=== PATIENT | male | born 1975 | race Caucasian/White ===

== ENCOUNTER 2023-07-25 19:55 | Emergency (ER) | payer OTHER, SELFPAY ==
[2023-07-25] VITALS (30 sets, daily range): BP systolic 128–196; BP diastolic 68–107; PULSE 62–95; RESP 8–23; TEMP 36.6–36.8; O2SAT 89–98
--- NOTE | 2023-07-25 19:59 | XR_ITS ---
The [address] [address] Patient Name: HERNESTO SAAVEDRA MRN: [id number] date: 1975 Sex: M Assigned Patient Location: ER Current Patient Location: ED.MAIN Accession/Order Number: [id number] Exam Date: 07/25/2023 20:20 Report Date: 07/25/2023 21:25 At the request of: TRISTAN MATA Procedure: XR shoulder RT min 2V EXAM: XR shoulder RT min 2V HISTORY: Right shoulder injury COMPARISON: Right shoulder radiographs 07/25/2023 TECHNIQUE: 2 view right shoulder FINDINGS: There is an anterior subluxation of the right glenohumeral joint. No definite fracture. Mild degenerative changes of the acromioclavicular joint. Imaged right lung is clear. XR/XR shoulder RT min 2V IMPRESSION: Anterior subluxation of the right glenohumeral joint. Electronically authenticated by: NATHANAEL ELIAS Date: 07/25/2023 21:25
--- NOTE | 2023-07-25 20:03 | ED_ITS ---
HPI - Extremity Injury (Upper) General Chief Complaint: Extremity Injury, Upper Stated Complaint: Shoulder Injury Time Seen by Provider: 07/25/23 19:57 History of Present Illness HPI narrative: patient is a 47-year-old male who presents to the emergency department for right shoulder injury that occurred just prior to arrival. 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 He denies head injury, loss of consciousness, pain in the neck or back. He states he dislocated his right shoulder a year ago. He is concerned he may dislocated his shoulder tonight. no medications taken prior to arrival. Related Data Previous Rx's Medication Instructions Recorded hydrocodone 5 mg-acetaminophen 325 1 tab PO Q6H PRN pain #12 tabs 07/25/23 mg tablet methocarbamol 750 mg tablet 750 mg PO TID PRN pain #20 tabs 07/25/23 ondansetron 4 mg disintegrating 4 mg PO Q6H PRN nausea and 07/25/23 tablet vomiting #12 tabs Allergies Allergy/AdvReac Type Severity Reaction Status Date / Time aspirin Allergy Unknown Rash Verified 07/25/23 20:01 Penicillins Allergy Unknown Rash Verified 07/25/23 20:01 Review of Systems ROS Constitutional Denies: fever or chills Ears, nose, mouth, and throat Denies: throat pain or neck pain Respiratory Denies: cough Gastrointestinal Denies: nausea or vomiting Musculoskeletal Denies: back pain, neck pain or extremity pain Integumentary/Breast Denies: rash Neurological Denies: headache or numbness in extremities Endocrine Denies: excessive urination [facility] Social History Smoking status: Never smoker Exam Narrative Exam Narrative: Gen.: Awake, alert, in no distress Head: Normocephalic, atraumatic ENT: Moist mucous membranes, no bony tenderness of the C-spine or posterior right shoulder Respiratory: No respiratory distress Extremities: limited abduction at the right shoulder with palpable rotation of the right upper extremity, no palpable deformity of the humeral head. No bony tenderness of the right elbow, normal appointment specialist strength in the right hand. 2+ right radial pulse Psych: Normal mood and affect Neuro: No focal neuro deficit Skin: Warm, dry, intact Constitutional Vital Signs, click to edit/add: Last Vital Signs Temp 97.9 F 07/25/23 20:38 Pulse 88 07/25/23 22:46 Resp 16 07/25/23 22:46 BP 128/68 07/25/23 22:46 Pulse Ox 98 07/25/23 22:46 O2 Del Method Room Air 07/25/23 22:46 Course Vital Signs Vital signs: Vital Signs Temperature 98.3 F 07/25/23 20:01 Pulse Rate 86 07/25/23 20:01 Respiratory Rate 18 07/25/23 20:01 Blood Pressure 196/107 H 07/25/23 20:01 Pulse Oximetry 98 07/25/23 20:01 Oxygen Delivery Method Room Air 07/25/23 20:01 Temperature 97.9 F 07/25/23 20:38 Pulse Rate 88 07/25/23 22:46 Respiratory Rate 16 07/25/23 22:46 Blood Pressure 128/68 07/25/23 22:46 Pulse Oximetry 98 07/25/23 22:46 Oxygen Delivery Method Room Air 07/25/23 22:46 MDM - Extremity Injury (Upper) MDM Narrative Medical decision making narrative: patient was initially medicated with intramuscular Toradol and Norflex. X-rays were obtained showing an anterior dislocation of the right shoulder. IV was established, patient was placed on cardiac monitoring with respiratory therapy at bedside. Consent was obtained from the patient for conscious sedation to reduce his right shoulder. Preprocedure paperwork was filled out by myself and attending physician. Attending physician is at the bedside throughout the duration of the conscious sedation and reduction. Patient was treated with 2 mg of IV Versed as well as 4 mg of IV Zofran and 15 mg of IV etomidate. Patient had excellent sedation and maintained his airway without supplemental oxygen or hypoxia. Right arm was easily manipulated with rotation with palpable and audible reduction of the right shoulder. Patient was placed in a right shoulder sling, post reduction x- rays were obtained showing adequate reduction of the right shoulder. Patient remains neurovascularly intact. 2+ right radial pulse is palpated after reduction. patient was observed for one hour following right shoulder reduction. He maintains his own airway, he maintains normal cardiac monitoring. He is easily arousable after right shoulder reduction. He is encouraged to stay in the right shoulder sling for 5-7 days, follow closely with orthopedics and apply ice to the area. He is placed on a course of analgesics and muscle relaxants. Return to the Emergency Room if symptoms change or worsen. Critical care time thirty-five minutes Medical Records Attestation: I reviewed the patient's medical records. Imaging Data XR shoulder: Attestation: I have reviewed the pertinent imaging results. Radiologist's impression: Procedure: XR shoulder RT min 2V EXAM: XR shoulder RT min 2V HISTORY: Right shoulder injury COMPARISON: Right shoulder radiographs 07/25/2023 TECHNIQUE: 2 view right shoulder FINDINGS: There is an anterior subluxation of the right glenohumeral joint. No definite fracture. Mild degenerative changes of the acromioclavicular joint. Imaged right lung is clear. IMPRESSION: Anterior subluxation of the right glenohumeral joint. Electronically authenticated by: NATHANAEL ELIAS Date: 07/25/2023 21:25 Critical Care Time Critical Care Time Total Critical Care Time: 35 Discharge Plan Discharge Chief Complaint: Extremity Injury, Upper Clinical Impression: Anterior dislocation of right shoulder Patient Disposition: Home, Self-Care Time of Disposition Decision: 20:54 Condition: Good Prescriptions / Home Meds: New hydrocodone-acetaminophen 5-325 mg tablet 1 tab PO Q6H PRN (Reason: pain) Qty: 12 0RF Rx Instructions: DX: M25.511 methocarbamol 750 mg tablet 750 mg PO TID PRN (Reason: pain) Qty: 20 0RF ondansetron 4 mg tablet,disintegrating 4 mg PO Q6H PRN (Reason: nausea and vomiting) Qty: 12 0RF Instructions: Shoulder Dislocation (ED), Closed Reduction (ED), Shoulder Immobilizer (ED) Additional Instructions: Wear sling for 5 days, call ortho office for follow up Stand Alone Forms: Portal Instructions Referrals: Physician,Non-Staff, MD [Primary Care Provider] - 1 week Vern Carias MD [Physician] - 1 week Discharge Date/Time: 07/25/23 22:48
--- NOTE | 2023-07-25 20:08 | PC.NURSE ---
Pain to right shoulder, no redness, bruising or warmth at site. Skin to right arm pink and warm, pulses present, able to move fingers and arm
[2023-07-25] MEDS: KETOROLAC TROMETHAMINE 30 MG/ML VIAL IM (20:13)
[2023-07-25] MEDS: ORPHENADRINE 60 MG/ 2 ML VIAL IM (20:13)
--- NOTE | 2023-07-25 20:40 | XR_ITS ---
The [address] [address] Patient Name: HENRESTO SAAVEDRA MRN: [id number] date: 1975 Sex: M Assigned Patient Location: ED.MAIN Current Patient Location: ER Accession/Order Number: [id number] Exam Date: 07/25/2023 21:20 Report Date: 07/25/2023 21:57 At the request of: TRISTAN MATA Procedure: XR shoulder RT min 2V EXAM: XR shoulder RT min 2V HISTORY: post reduction COMPARISON: Right shoulder radiographs 07/25/2023 TECHNIQUE: 2 views right shoulder FINDINGS: Interval reduction of the right glenohumeral joint which appears anatomic. No definite fracture although positioning limits evaluation. The remainder is otherwise unchanged from recent prior. XR/XR shoulder RT min 2V IMPRESSION: Interval successful reduction of the right glenohumeral joint. Limited evaluation of the right shoulder for fracture. Electronically authenticated by: NATHANAEL ELIAS Date: 07/25/2023 21:57
[2023-07-25] MEDS: ONDANSETRON PF 4 MG/2 ML VIAL IV (21:09)
[2023-07-25] MEDS: MIDAZOLAM HCL 2 MG/2 ML VIAL IV ×2 (21:12→21:16)
[2023-07-25] MEDS: ETOMIDATE 20 MG/10 ML VIAL 15 MG IVP (21:16)
--- NOTE | 2023-07-25 21:29 | PC.NURSE ---
Awake and alert, answers all questions appropriately. Skin pink and warm. Able to move all extremities. Skin to right arm and hand pink and warm and able to move arm, hand, and fingers, pulses present. Sling in place to right arm, ice applied.
--- NOTE | 2023-07-25 21:39 | PC.NURSE ---
Remains alert, takes ice chips without difficulty.
--- NOTE | 2023-07-25 21:56 | PC.NURSE ---
Patient friend/pedigree tracer here at this time and is updated per OK from patient.
== END 2023-07-25 22:48 | disposition home or self-care (01) ==
PROVIDERS: Emergency Provider Internal Medicine
DX: S43.011A Anterior subluxation of right humerus, initial encounter (principal); W18.2XXA Fall in (into) shower or empty bathtub, initial encounter
CPT/HCPCS: 23650; 73030; 96372; 96374; 96375; 99152; 99285

== ENCOUNTER 2023-07-28 16:22 | Emergency (ER) | payer OTHER, SELFPAY ==
[2023-07-28] VITALS (12 sets, daily range): BP systolic 156–186; BP diastolic 96–114; PULSE 80–106; RESP 16–29; TEMP 36.6–36.8; O2SAT 96–100
--- NOTE | 2023-07-28 16:31 | XR_ITS ---
[address] [address] Patient Name: HERNESTO SAAVEDRA MRN: [id number] date: 1975 Sex: M Assigned Patient Location: ER Current Patient Location: Accession/Order Number: [id number] Exam Date: 07/28/2023 17:00 Report Date: 07/28/2023 17:21 At the request of: JHONATAN GLASS Procedure: XR shoulder RT 1V EXAM: XR shoulder RT 1V HISTORY: dislocation COMPARISON: X-rays 07/25/2023 TECHNIQUE: Single view FINDINGS: IMPRESSION Again demonstrated is an anterior inferior dislocation of the humeral head from the glenoid. No gross visualized fracture. Degenerative changes of the acromioclavicular joint Electronically authenticated by: CARLOS BEACH Date: 07/28/2023 17:21
--- NOTE | 2023-07-28 16:32 | ED_ITS ---
HPI - Extremity Injury (Upper) General Chief Complaint: Extremity Injury, Upper Stated Complaint: upper extremity injury right Time Seen by Provider: 07/28/23 16:25 Source: patient Mode of arrival: walk-in Limitations: no limitations History of Present Illness HPI narrative: 47-year-old male presents with a possible right shoulder dislocation. He was here 3 days ago with the same issue and was put into place, but he was not wearing his sling today and he states that he only moved his arm slightly and pop out of place. He did not call Ortho yesterday or today to make a follow-up appointment. Denies swelling, temp or sensation changes Related Data Previous Rx's Medication Instructions Recorded hydrocodone 5 mg-acetaminophen 325 1 tab PO Q6H PRN pain #12 tabs 07/25/23 mg tablet methocarbamol 750 mg tablet 750 mg PO TID PRN pain #20 tabs 07/25/23 ondansetron 4 mg disintegrating 4 mg PO Q6H PRN nausea and 07/25/23 tablet vomiting #12 tabs Allergies Allergy/AdvReac Type Severity Reaction Status Date / Time aspirin Allergy Unknown Rash Verified 07/28/23 16:25 Penicillins Allergy Unknown Rash Verified 07/28/23 16:25 Review of Systems ROS Status of ROS 10 or more systems reviewed and unremarkable except as noted in history and below PFSH PFS Social History Smoking status: Never smoker Exam Narrative Exam Narrative: General: alert, no distress, talking in full an complete sentences skin: warm, dry, intact head: normocephalic, atraumatic eyes: EOMI nose: nares patent neck: supple, trachea midline respiratory: non-labored extremities: No range of motion of right shoulder due to pain, manager rfid strength +5/5, capillary refill intact, pulses intact neuro: A&Ox3 psych: appropriate mood and affect, cooperative Constitutional Vital Signs, click to edit/add: Last Vital Signs Temp 98 F 07/28/23 17:10 Pulse 80 07/28/23 17:32 Resp 16 07/28/23 17:32 BP 162/96 H 07/28/23 17:32 Pulse Ox 98 07/28/23 17:32 O2 Del Method Room Air 07/28/23 16:26 O2 Flow Rate 2 07/28/23 17:32 Course Vital Signs Vital signs: Vital Signs Temperature 98.3 F 07/28/23 16:26 Pulse Rate 101 H 07/28/23 16:26 Respiratory Rate 18 07/28/23 16:26 Blood Pressure 173/102 H 07/28/23 16:26 Pulse Oximetry 96 07/28/23 16:26 Oxygen Delivery Method Room Air 07/28/23 16:26 Temperature 98 F 07/28/23 17:10 Pulse Rate 80 07/28/23 17:32 Respiratory Rate 16 07/28/23 17:32 Blood Pressure 162/96 H 07/28/23 17:32 Pulse Oximetry 98 07/28/23 17:32 Oxygen Delivery Method Room Air 07/28/23 16:26 Oxygen Delivery Flow Rate 2 07/28/23 17:32 MDM - Extremity Injury (Upper) MDM Narrative Medical decision making narrative: Patient medicated with Toradol and Norflex. Previous ER visit reviewed. Prelim x-ray shows a dislocation. Patient given conscious sedation with 20 mg IV etomidate. Patient was placed on global chief experience officer and pulse ox along with oxygen with respiratory therapy and Dr. Brizuela at bedside. Shoulder was successfully reduced with manual traction. No complications and tolerated well. He is placed in a sling and swath. Neurovascular intact. He is instructed to leave this on to prevent another dislocation and follow-up with Ortho. He was prescribed [place], Robaxin and Zofran 3 days ago. Patient is main appointment for next Thursday at [address] carias. Patient is awake and alert and oriented x3 having normal conversation prior to discharge. Afebrile, not tachypneic, not tachycardic, tolerating p.o., not hypoxic, non toxic appearing and ambulating at baseline and hemodynamically stable to be d/c. answered all questions. pt in agreement with tx. educated when to return to ER. Medical Records Attestation: I reviewed the patient's medical records. Imaging Data shoulder xray: Attestation: I have reviewed the pertinent imaging results. Radiologist's impression: IMPRESSION Again demonstrated is an anterior inferior dislocation of the humeral head from the glenoid. No gross visualized fracture. Degenerative changes of the acromioclavicular joint Discharge Plan Discharge Chief Complaint: Extremity Injury, Upper Clinical Impression: Anterior dislocation of right shoulder Qualifiers: Encounter type: initial encounter Qualified Code(s): S43.014A - Anterior dislocation of right humerus, initial encounter Patient Disposition: Home, Self-Care Time of Disposition Decision: 17:46 Condition: Good Mode of Transportation: Private Vehicle Prescriptions / Home Meds: No Action hydrocodone-acetaminophen 5-325 mg tablet 1 tab PO Q6H PRN (Reason: pain) Qty: 12 0RF Rx Instructions: DX: M25.511 methocarbamol 750 mg tablet 750 mg PO TID PRN (Reason: pain) Qty: 20 0RF ondansetron 4 mg tablet,disintegrating 4 mg PO Q6H PRN (Reason: nausea and vomiting) Qty: 12 0RF Instructions: Shoulder Dislocation (ED), How to Use a Sling (ED) Additional Instructions: Keep the sling on to prevent another dislocation Stand Alone Forms: Portal Instructions Referrals: Physician,Non-Staff, [Primary Care Provider] - 1 week Vern Carias MD [Physician] - 08/03/23 9:00 am Procedures ED Orthopedic Joint Reduction Orthopedic Joint Reduction Joint #1: Time out performed: Yes Side: right Joint reduction location: shoulder Analgesia: procedural sedation Shoulder technique used (if applicable): traction/counter-traction and external rotation Post-reduction neuro exam: intact Post-reduction vascular exam: intact Post-reduction x-ray obtained: Yes Post-reduction x-ray results: reduced Splint applied: Yes Patient tolerated procedure: well
[2023-07-28] MEDS: KETOROLAC TROMETHAMINE 30 MG/ML VIAL 15 MG IM (16:43)
[2023-07-28] MEDS: ORPHENADRINE 60 MG/ 2 ML VIAL IM (16:43)
--- NOTE | 2023-07-28 17:32 | XR_ITS ---
[address] [address] Patient Name: HERNESTO SAAVEDRA MRN: [id number] date: 1975 Sex: M Assigned Patient Location: ER Current Patient Location: ER Accession/Order Number: [id number] Exam Date: 07/28/2023 17:30 Report Date: 07/28/2023 17:54 At the request of: JHONATAN GLASS Procedure: XR shoulder RT 1V EXAM: XR shoulder RT 1V HISTORY: post reduction COMPARISON: Earlier in the day TECHNIQUE: Single view FINDINGS: IMPRESSION: Reduction of the previously visualized humeral head dislocation. Degenerative changes of the glenohumeral and acromioclavicular joints. Electronically authenticated by: CARLOS BEACH Date: 07/28/2023 17:54
[2023-07-28] MEDS: ETOMIDATE 20 MG/10 ML VIAL 15 MG IVP (17:41)
[2023-07-28] MEDS: ETOMIDATE 20 MG/10 ML VIAL 5 MG IVP (17:42)
== END 2023-07-28 18:13 | disposition home or self-care (01) ==
PROVIDERS: Emergency Provider Emergency Medicine
DX: S43.014A Anterior dislocation of right humerus, initial encounter (principal); X50.9XXA Other and unspecified overexertion or strenuous movements or postures, initial encounter
CPT/HCPCS: 23650; 73020; 96372; 96374; 99152; 99285

== ENCOUNTER 2023-09-08 13:01 | Outpatient (OUT) | payer OTHER, SELFPAY ==
--- NOTE | 2023-09-08 13:05 | MR_ITS ---
[address] [address] Patient Name: HERNESTO SAAVEDRA MRN: [id number] date: 1975 Sex: M Assigned Patient Location: MRI Current Patient Location: MRI Accession/Order Number: [id number] Exam Date: 09/08/2023 13:50 Report Date: 09/08/2023 21:48 At the request of: CHENTE PAZ Procedure: MR shoulder RT wo con EXAM: MR shoulder RT wo con HISTORY: Shoulder pain following dislocation COMPARISON: X-rays 07/25/2023 and 07/28/2023 TECHNIQUE: Multiplanar, multi sequential MRI sequences were performed. FINDINGS: This study is degraded secondary to full internal rotation positioning of the humeral head, patient motion and imaging angles performed. Subacute impacted fracture of the posterior superior aspect of the humeral head with underlying bone marrow edema. Evaluation of the anterior inferior glenoid fraying fracture is limited on this study. No discrete glenohumeral joint effusion. Moderate degenerative changes of the acromioclavicular joint consistent with capsular hypertrophy, small effusion, osteophytes and irregularity of the distal clavicle and adjacent acromion articular surfaces and subchondral bone. This complex mildly indents the dorsal fibers of the supraspinatus myotendinous junction (sagittal 5). The coracoclavicular, coracohumeral and coracoacromial ligaments exhibit no gross thickening, tear or edema. The subacromial-subdeltoid bursal space is unremarkable. The superficial subcutaneous soft tissues are free of edema, hematoma, mass or cyst. Posttraumatic thickening and edema of the infraspinatus tendon with no visualized tear. The supraspinatus, subscapularis and teres minor tendons exhibit no gross visualized irregularity. No discrete muscle edema, hematoma, atrophy or fatty infiltration. No avulsion of the biceps tendon long head from the supraglenoid tubercle or bicipital groove. The biceps tendon long head exhibits no gross visualized thickening, tear or edema, however, limited on this study. No gross avulsion of the biceps labral anchor. Evaluation of the anterior inferior labrum is limited secondary to positioning and angulation of the study. Questionable fraying of the posterior superior labrum, however, this may be artifactual (coronal 14). The humeral head and glenoid articular cartilage exhibit no gross osteochondral irregularity. MR/MR shoulder RT wo con IMPRESSION: 1. Limited evaluation of the anterior inferior osseous glenoid and the adjacent labrum. 2. Questionable fraying of the posterior superior labrum . 3. Postoperative infraspinatus tendinopathy. 4. Subacute Hill-Sachs fracture of the humeral head. Electronically authenticated by: CARLOS BEACH Date: 09/08/2023 21:48
== END 2023-09-08 13:02 | disposition home or self-care (01) ==
PROVIDERS: Visit Provider Orthopaedic Surgery
DX: S42.294A Other nondisplaced fracture of upper end of right humerus, initial encounter for closed fracture (principal); S43.004S Unspecified dislocation of right shoulder joint, sequela
CPT/HCPCS: 73221

== ENCOUNTER 2023-11-12 18:50 | Emergency (ER) | payer OTHER, SELFPAY ==
[2023-11-12] VITALS (34 sets, daily range): BP systolic 133–213; BP diastolic 89–137; PULSE 64–96; RESP 14–26; TEMP 36.7; O2SAT 93–99; BMI 27.9
--- OUTSIDE RECORDS SUMMARY | 2023-11-12 18:57 | XMS_ITS | CCD ---
Author Name Unknown Address [address] [place] [address] Organization [facility] Care Team Providers Care Senior Wind Energy Consultant Name Role Phone MISC, DR GERBER Attending Unavailable MISC, DR GERBER Consulting Unavailable MISC, DR GERBER Admitting Unavailable Allergies Allergy Classification Reported Allergen(s) Allergy Type Date of Onset Reaction(s) Facility (1 source) Aspirin Drug Allergy 01-25-2015 [facility] Repository (1 source) Penicillins Drug allergy (disorder) 01-25-2015 [facility] Repository Problems Active Problems Problem Classification Problem Date Documented Da te Episodic/Chronic Unclassified (3 sources) CONTACT W/AND (SUSP) EXPOS COVID-19; Translations: [CONTACT W/AND (SUSP) EXPOS COVID-19] Onset: 07-22-2021 Past or Other Problems Problem Classification Problem Date Documented Da te Episodic/Chronic Unclassified (1 source) CONTACT W/AND (SUSP) EXPOS COVID-19; Translations: [CONTACT W/AND (SUSP) EXPOS COVID-19] Onset: 07-17-2021 Results Test Name Value Interpretation Reference Range Facil ity Covid-19 PCR (CVDTBH)on 06-29 SARS-CoV-2 (COVID-19) RNA RONDA+probe Ql (Unsp spec) Not detected Normal NOT DETECTED [facility] Comment on above: Result Comment: This test is not yet candelaria roved or cleared by the [place] FDA. When there are no FDA-approved or cleared tests available, and other criteria are met, FDA can make tests available under an emergency access mechanism called an Emergency Use Authorization (EUA). The EUA for this test is supported by the Wheat Cleaner of Health and Human Service's (HHS's) declaration that circumstances exist to justify the emergency use of in vitro diagnostics for the detection and/or diagnosis of the virus that causes COVID-19. This EUA will remain in effect (meaning this test can be used) for the duration of the COVID-19 declaration justifying emergency of IVDs, unless it is terminated or revoked by FDA (after which the test may no longer be used). When diagnostic testing is negative, the possibility of a false negative should be considered in the context of a patient's recent exposures and the presence of clinical signs and symptoms consistent with SARS-CoV-2. Performed By: #### C VDTB #### [facility] [address] [place], [place] [address] Dr. Wally Hernandez Encounters Encounter Date Encounter Type Care Provider Facility Start: 07-17-2021 End: 07-17-[address] GERBER [facility] Facility: Payers Date Payer Category Payer Unknown [id number] 1960 Unknown [id number] Summary Purpose Family History No Family History Records Found Advance Directives No Advanced Directives Records Found Additional Source Comments (unrecognized sect ion and content) No Status Records Found INFORMATION SOURCE (unrecogn ized section and content) DATE CREATED AUTHOR 07/23/2021 [facility] FOR RECORDS PERTAINING TO PATIENTS WHO ARE OR HAVE BEEN ENROLLED IN A CHEMICAL DEPENDENCY/SUBSTANCEABUSE PROGRAM, SOME INFORMATION MAY BE OMITTED. This clinical summary was aggregated from multiple sources. Caution should be exercised in using it in the provision of clinical care. This summary normalizes information from multiple sources, and as a consequence, information in this document may materially change the coding, format and clinical context of patient data. In addition, data may be omitted in some cases. CLINICAL DECISIONS SHOULD BE BASED ON THE PRIMARY CLINICAL RECORDS. [employer] provides no warranty or guarantee of the accuracy or completeness of information in this document.
--- NOTE | 2023-11-12 19:12 | XR_ITS ---
The [address] [address] Patient Name: HERNESTO SAAVEDRA MRN: [id number] date: 1975 Sex: M Assigned Patient Location: ER Current Patient Location: Accession/Order Number: [id number] Exam Date: 11/12/2023 19:35 Report Date: 11/12/2023 20:17 At the request of: MALINDA MARKER Procedure: XR elbow RT 2V EXAM: XR elbow RT 2V HISTORY: Pain and swelling. COMPARISON: None FINDINGS: A true lateral view was not obtained; therefore, assessment for a joint effusion is limited. There is no convincing evidence of an acute fracture, subluxation or bony destruction. XR/XR elbow RT 2V IMPRESSION: No definite acute osseous abnormality detected. Follow-up as clinically indicated. Electronically authenticated by: RAMON AKBAR Date: 11/12/2023 20:17
--- NOTE | 2023-11-12 19:12 | XR_ITS ---
The [address] [address] Patient Name: HERNESTO SAAVEDRA MRN: [id number] date: 1975 Sex: M Assigned Patient Location: ER Current Patient Location: Accession/Order Number: [id number] Exam Date: 11/12/2023 19:35 Report Date: 11/12/2023 20:06 At the request of: MALINDA MARKER Procedure: XR shoulder RT min 2V IMAGES REVIEWED: XR shoulder RT min 2V COMPARISON: 07/25/2023, 09/08/2023. CLINICAL INDICATION: dislocation FINDINGS/IMPRESSION: 1. Anterior glenohumeral dislocation. 2. Prior MRI shoulder from 09/08/2023 demonstrated a subacute Hill-Sachs fracture of the humeral head. Questionable trace Hill-Sachs impaction deformity on the first view. No evidence of acute fracture on today's x-ray. 3. Moderate degenerative change right AC joint. Electronically authenticated by: MALLIKA NOONAN Date: 11/12/2023 20:06
--- NOTE | 2023-11-12 19:14 | ED_ITS ---
HPI - Extremity Injury (Upper) General Chief Complaint: Extremity Injury, Upper Stated Complaint: upper extremity injury Time Seen by Provider: 11/12/23 19:02 Source: patient Mode of arrival: walk-in Limitations: no limitations History of Present Illness HPI narrative: 48-year-old male who is right-hand dominant and has had several shoulder dislocations in the past presents for evaluation of a shoulder dislocation. The patient states he was putting on a shirt to get ready to go out to dinner when he felt a popping sensation in his right shoulder. He feels that his right elbow may be also dislocated. He feels like there is a lump in his right elbow and he cannot move it. He has followed up with Dr. Carias in the past. He denies any trauma to the extremity. There is no numbness or tingling. MD complaint: injury to: Reports right Related Data Allergies Allergy/AdvReac Type Severity Reaction Status Date / Time aspirin Allergy Unknown Rash Verified 11/12/23 19:04 Penicillins Allergy Unknown Rash Verified 11/12/23 19:04 Review of Systems ROS Status of ROS 10 or more systems reviewed and unremark able except as noted in history and below [facility] Social History Smoking status: Never smoker Exam Narrative Exam Narrative: Nurses note and vital signs reviewed and patient is not hypoxic.Blood pressure is noted to be elevated at 170/110 General: Alert, nontoxic but uncomfortable appearing male, he is sitting upright on the stretcher with his arm dangling into his lap, refuses any range of motion of the right upper extremity Skin: Warm, dry, no pallor noted. There is no rash noted. Head: Normocephalic, atraumatic Eye: Normal conjunctiva, no drainage, EOMI. PERRL Ears, Nose, Mouth, and Throat: oral mucosa is moist. Cardiovascular: Regular Rate and Rhythm Respiratory: Patient is in no distress, no accessory muscle use, lungs are clear to auscultation, no wheezing, rales or rhonchi Back: non-tender, no CVA tenderness bilaterally to percussion. Musculoskeletal: Formerly as noted at the right anterior shoulder area with palpable humeral head distal to the joint, patient refuses range of motion, there is no notable deformity of the elbow area, he is able to move all of his fingers, pulses are brisk and equal bilaterally Neurological: A&O x4, normal speech Psychiatric: Cooperative Constitutional Vital Signs, click to edit/add: Last Vital Signs Temp 98.1 F 11/12/23 19:00 Pulse 71 11/12/23 20:50 Resp 18 11/12/23 20:36 BP 148/90 H 11/12/23 20:40 Pulse Ox 96 11/12/23 20:50 O2 Del Method Room Air 11/12/23 19:00 O2 Flow Rate 2 11/12/23 20:13 Course Vital Signs Vital signs: Vital Signs Temperature 98.1 F 11/12/23 19:00 Pulse Rate 82 11/12/23 19:00 Respiratory Rate 16 11/12/23 19:00 Blood Pressure 170/110 H 11/12/23 19:00 Pulse Oximetry 97 11/12/23 19:00 Oxygen Delivery Method Room Air 11/12/23 19:00 Temperature 98.1 F 11/12/23 19:00 Pulse Rate 71 11/12/23 20:50 Respiratory Rate 18 11/12/23 20:36 Blood Pressure 148/90 H 11/12/23 20:40 Pulse Oximetry 96 11/12/23 20:50 Oxygen Delivery Method Room Air 11/12/23 19:00 Oxygen Delivery Flow Rate 2 11/12/23 20:13 MDM - Extremity Injury (Upper) MDM Narrative Medical decision making narrative: This 48-year-old male with a 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 He has been seen in the past by Dr. Carias and had an MRI of the shoulder. X-ray showed an anterior shoulder dislocation area and he was neurovascularly intact. He was concerned that he had some problem with his elbow as well. Elbow x-ray was also ordered and was normal. The patient consented to conscious sedation and was sedated and the shoulder was reduced. Postreduction x-ray was performed and shows a successful reduction. The patient will be given 2 Percocet to take home and a prescription for Robaxin and Percocet to use over the course of the next several days. He was strongly encouraged to use his sling as he has had patients in the past after not wearing a sling. He will be referred back to Dr. Carias for reevaluation and more definitive care. Medical Records Medical records narrative: The [address] [address] XRay Report Signed Patient: HERNESTO SAAVEDRA MR#: [id number] : 1975 Acct:[id number] Age/Sex: 48 / M ADM Date: 11/12/23 Loc: ER Attending Dr: Ordering Physician: Gianna Noyola Date of Service: 11/12/23 Procedure(s): XR shoulder RT 1V Accession Number(s): [id number] cc: Gianna Marker; Physician,Non-Staff M.DJohnathan~ The [address] [address] Patient Name: HERNESTO SAAVEDRA MRN: [id number] date: 1975 Sex: M Assigned Patient Location: ER Current Patient Location: ER Accession/Order Number: [id number] Exam Date: 11/12/2023 20:40 Report Date: 11/12/2023 20:58 At the request of: GIANNA NOYOLA Procedure: XR shoulder RT 1V IMAGES REVIEWED: XR shoulder RT 1V COMPARISON: X-ray earlier same day, MRI right shoulder 09/08/2023. CLINICAL INDICATION: post reduction FINDINGS/IMPRESSION: 1. Status post interval successful reduction of previously seen right anterior glenohumeral dislocation. 2. No acute fractures seen. Suspect a small Hill-Sachs lesion. 3. Mild-moderate degenerative change right shoulder. Electronically authenticated by: MALLIKA NOONAN Date: 11/12/2023 20:58 Critical Care Time Critical Care Time Critical Care Time: Yes Total Critical Care Time: 35 Attestation: . Discharge Plan Discharge Chief Complaint: Extremity Injury, Upper Clinical Impression: Anterior dislocation of right shoulder Patient Disposition: Home, Self-Care Time of Disposition Decision: 21:12 Condition: Good Instructions: Shoulder Dislocation (ED), How to Use a Sling (ED), Shoulder Immobilizer (ED) Stand Alone Forms: Portal Instructions Referrals: Physician,Non-Staff, MD [Primary Care Provider] - 1 week Procedures ED Procedure Instructions Procedures Procedures: Procedure note: The right anterior shoulder reduction; the risks and benefits of the procedure were discussed with the patient who verbalized understanding and signed consent. An axis placed over the right shoulder. Timeout was called. The patient was medicated with IV Zofran, 100 ?g of fentanyl and 4 mg of IV Versed. This did not allow the degree of sedation that he required to reduce the shoulder and he was subsequently medicated with 20 mg of IV etomidate. The shoulder was reduced with traction and once reduction was appreciated a shoulder immobilizer/sling was placed over the right shoulder. Post reduction x-ray shows reduction of the shoulder joint.
--- NOTE | 2023-11-12 19:21 | PC.NURSE ---
Pt. presents to ER with suspected dislocation of right shoulder Pt. states that he was buttoning up his shirt tonight to go to dinner and heard and felt a popping in his right shoulder Pt. states this is the fourth time it has happened Pt. expresses that his whole right extremity is in pain and states he believes his right elbow is swollen. Pt. MSP's are intact Pt. denies any further needs at this time
--- NOTE | 2023-11-12 20:20 | RESP.RT ---
RT assisted with conscious sedation. 02 at 2L placed on patient.
--- NOTE | 2023-11-12 20:36 | XR_ITS ---
The [address] [address] Patient Name: HERNESTO SAAVEDRA MRN: [id number] date: 1975 Sex: M Assigned Patient Location: ER Current Patient Location: Accession/Order Number: [id number] Exam Date: 11/12/2023 20:40 Report Date: 11/12/2023 20:58 At the request of: MALINDA MARKER Procedure: XR shoulder RT 1V IMAGES REVIEWED: XR shoulder RT 1V COMPARISON: X-ray earlier same day, MRI right shoulder 09/08/2023. CLINICAL INDICATION: post reduction FINDINGS/IMPRESSION: 1. Status post interval successful reduction of previously seen right anterior glenohumeral dislocation. 2. No acute fractures seen. Suspect a small Hill-Sachs lesion. 3. Mild-moderate degenerative change right shoulder. Electronically authenticated by: MALLIKA NOONAN Date: 11/12/2023 20:58
[2023-11-12] MEDS: ONDANSETRON PF 4 MG/2 ML VIAL IV (20:52)
[2023-11-12] MEDS: DIPHENHYDRAMINE HCL 50 MG/ML (1ML) VIAL 25 MG IV (20:52)
[2023-11-12] MEDS: MIDAZOLAM HCL 2 MG/2 ML VIAL 4 MG IV (20:52)
[2023-11-12] MEDS: FENTANYL CITRATE/PF 100 MCG/2 ML VIAL IV (20:53)
--- NOTE | 2023-11-12 21:08 | PC.NURSE ---
2012-Pt vitals obtained This nurse, Jean Paul Sarmiento student, Zaynab Storm RN, Erin respiratory therapist and Dr. Noyola at bedside Zofran administered 2017- rash noted at IV site, 25mg IV Benadryl given pt still A&Ox4 at this time placed on 2L of O2 nc 2018- 50mcg of Fentanyl given IV 2020- time out called, right sided shoulder reduction to take place 4mg IV versed administered 2021- unsuccessful attempts at resetting the shoulder 2022- 50mcg of Fentanyl given IV Vitals obtained every 5 minutes throughout the procedure, BP remained elevated but all vitals stable and recorded At 2030- Loop Trolley joined to assist, 20mg IV etomidate administered 2032- successful reduction 2038- post reduction x ray obtained and approved by Dr. Noyola at bedside
[2023-11-12] MEDS: ETOMIDATE 20 MG/10 ML VIAL IVP (21:24)
[2023-11-12] MEDS: OXYCODONE HCL/ACETAMINOPHEN 5MG/325MG 1 TAB PO (22:57)
[2023-11-12] MEDS: OXYCODONE HCL/ACETAMINOPHEN 5MG/325MG 2 TAB PO (23:37)
--- NOTE | 2023-11-12 23:57 | PC.NURSE ---
Pt. received discharge instructions as well as home medications Pt. educated on when to take medications, and to follow up with ortho Pt. and friend at bedside understood discharge instructions and denied any questions Pt. able to ambulate to bathroom Pt. wheeled out of ER by this student development specialist to friends car
== END 2023-11-12 23:57 | disposition home or self-care (01) ==
PROVIDERS: Emergency Provider Emergency Medicine
DX: M24.411 Recurrent dislocation, right shoulder (principal)
CPT/HCPCS: 23650; 73020; 73030; 73070; 96374; 96375; 99152; 99284; J1200; J2250; J2405; J3010

== ENCOUNTER 2023-11-23 09:52 | Outpatient (RCR) | payer OTHER, SELFPAY | END 2024-01-28 13:00 | disposition home or self-care (01) | LOC: PT 09:52 | PROVIDERS: Visit Provider Orthopaedic Surgery | DX: S43.004D Unspecified dislocation of right shoulder joint, subsequent encounter (principal) ==

== ENCOUNTER 2024-01-29 07:59 | Outpatient (RCR) | payer OTHER, SELFPAY | END 2024-03-03 13:18 | disposition home or self-care (01) | LOC: PT 07:59 | PROVIDERS: Visit Provider Orthopaedic Surgery | DX: S43.004D Unspecified dislocation of right shoulder joint, subsequent encounter (principal) | CPT/HCPCS: 97110; 97112; 97140; 97162 ==

== ENCOUNTER 2024-03-02 13:36 | Emergency (ER) | payer OTHER, SELFPAY ==
[2024-03-02] VITALS (25 sets, daily range): BP systolic 130–192; BP diastolic 88–144; PULSE 67–96; TEMP 36.7–36.9; O2SAT 92–98; BMI 28.6
--- NOTE | 2024-03-02 13:39 | XR_ITS ---
The [address] [address] Patient Name: HERNESTO SAAVEDRA MRN: [id number] date: 1975 Sex: M Assigned Patient Location: ED.MAIN Current Patient Location: ER Accession/Order Number: [id number] Exam Date: 03/02/2024 13:48 Report Date: 03/02/2024 14:04 At the request of: TRISTAN MATA Procedure: XR shoulder RT min 2V PROCEDURE: XR shoulder RT min 2V HISTORY: dislocation COMPARISON: None. FINDINGS: BONES:Anterior-inferior dislocation of the humeral head in relation to glenoid. Questionable nondisplaced fracture involving inferior margin of glenoid. Mild degenerative changes of acromioclavicular joint. SOFT TISSUES:No visible soft tissue swelling. EFFUSION:None visible. OTHER: Negative. XR/XR shoulder RT min 2V IMPRESSION: 1. Anterior-inferior glenohumeral dislocation. 2. Possible fracture of the inferior margin of glenoid. Follow-up recommended. Electronically authenticated by: CHENTE TRAORE Date: 03/02/2024 14:04
--- NOTE | 2024-03-02 13:43 | ED.GENADUL1 ---
HPI HPI - General Adult General Chief complaint: Extremity Injury, Upper Stated complaint: UPPER EXTREMITY INJURY Time Seen by Provider: 03/02/24 13:37 History of Present Illness HPI narrative: Patient is a 48-year-old male with a history of recurrent right shoulder dislocation who presents to the emergency department from physical therapy where he was working on rehabbing his right shoulder. He states he was doing an arm exercise when he felt his shoulder pop out. He denies any falls or direct injuries. He is right-hand dominant. Related Data Previous Rx's ?Medication ?Instructions ?Recorded hydrocodone 5 mg-acetaminophen 325 1 tab PO Q6H PRN pain 3 days #12 03/02/24 mg tablet tabs methocarbamol 750 mg tablet 750 mg PO TID PRN pain #20 tabs 03/02/24 ondansetron 4 mg disintegrating 4 mg PO Q6H PRN nausea and 03/02/24 tablet vomiting #12 tabs Allergies Allergy/AdvReac Type Severity Reaction Status Date / Time aspirin Allergy Unknown Rash Verified 11/12/23 19:04 Penicillins Allergy Unknown Rash Verified 11/12/23 19:04 Opioid HPI Opioid Management Most Recent Opioid Data: Last Pain Scale 8 03/02/24 13:53 Last ED Pain Assessment 03/02/24 13:53 Review of Systems ROS Constitutional Denies: fever or chills Cardiovascular Denies: chest pain Respiratory Denies: shortness of breath Gastrointestinal Denies: nausea or vomiting Musculoskeletal Reports: extremity pain; Denies: back pain or neck pain Integumentary/Breast Denies: rash Neurological Denies: headache Hematologic/Lymphatic Denies: easy bruising or easy bleeding PFSH PFS Social History Smoking status: Never smoker Exam Narrative Exam Narrative: Gen.: Awake, alert, in no distress Head: Normocephalic, atraumatic ENT: Moist mucous membranes Respiratory: No respiratory distress, lungs clear bilaterally Cardio: Regular rate and rhythm Extremities: Right upper extremity is flexed with deformity at the right glenohumeral joint. 2+ right radial pulse with normal flexion extension of the fingers of the right hand. Psych: Normal mood and affect Neuro: No focal neuro deficit Skin: Warm, dry, intact Constitutional Vital Signs, click to edit/add: Last Vital Signs Temp 98.4 F 03/02/24 13:56 Pulse 72 03/02/24 14:35 Resp 18 03/02/24 13:56 BP 130/92 H 03/02/24 14:35 Pulse Ox 93 L 03/02/24 14:35 O2 Del Method Room Air 03/02/24 13:39 O2 Flow Rate 2 03/02/24 13:56 Course Vital Signs Vital signs: Vital Signs Temperature 98.0 F 03/02/24 13:39 Pulse Rate 84 03/02/24 13:39 Respiratory Rate 18 03/02/24 13:39 Blood Pressure 186/112 H 03/02/24 13:39 Pulse Oximetry 97 03/02/24 13:39 Oxygen Delivery Method Room Air 03/02/24 13:39 Temperature 98.4 F 03/02/24 13:56 Pulse Rate 72 03/02/24 14:35 Respiratory Rate 18 03/02/24 13:56 Blood Pressure 130/92 H 03/02/24 14:35 Pulse Oximetry 93 L 03/02/24 14:35 Oxygen Delivery Method Room Air 03/02/24 13:39 Oxygen Delivery Flow Rate 2 03/02/24 13:56 Medical Decision Making [facility] Narrative Medical decision making narrative: 1347: On arrival to the emergency department, patient has an exam consistent with anterior dislocation of the right shoulder. He immediately had x-rays obtained showing an anterior dislocation of the right shoulder joint, patient was placed on cardiac monitoring with an IV, conscious sedation paperwork was obtained and the patient was evaluated by myself and attending physician. Patient consented to the procedure. 1400: He was given 4 mg IV Zofran, 20 mg IV etomidate and 2 mg IV Versed with excellent sedation achieved rapidly. He maintained stable vital signs with no hypoxia. He was noted to have hypertension on arrival and throughout the procedure. The right shoulder was easily manipulated by externally rotating and abducting the joint and Reduction was felt. Patient remains neurovascularly intact and was placed in a shoulder immobilizer. 1415: Repeat x-rays show successful reduction of the right shoulder dislocation. Patient is resting comfortably and blood pressure has improved to 165/94. 1520: Patient remains in a sling and swath and neurovascularly intact. He is instructed to follow-up with Dr. Carias. He is awake, alert and able to ambulate. A friend will drive him home. Short course of analgesics and muscle relaxants were given for home. He maintained stable vital signs and blood pressure has gotten significantly better after conscious sedation and reduction of the shoulder. Return to the ER if symptoms change or worsen. Medical Records Medical records reviewed: Yes I reviewed the patient's medical records Imaging Data XR shoulder: Attestation: I have reviewed the pertinent imaging results. Radiologist's impression: ITS Impressions Shoulder X-Ray 03/02/24 13:39 IMPRESSION: 1. Anterior-inferior glenohumeral dislocation. 2. Possible fracture of the inferior margin of glenoid. Follow-up recommended. Electronically authenticated by: CHENTE TRAORE Date: 03/02/2024 14:04 Shoulder X-Ray 03/02/24 14:07 IMPRESSION: 1. Successful reduction of right glenohumeral joint. 2. Inferior margin of the glenoid is not well seen on this study due to overlapping structures. Follow-up right shoulder radiographs for possible inferior rim fracture is recommended. Electronically authenticated by: CHENTE TRAORE Date: 03/02/2024 14:35 Discharge Plan Discharge Stand Alone Forms: Portal Instructions Chief Complaint: Extremity Injury, Upper Clinical Impression: Anterior dislocation of right shoulder Patient Disposition: Home, Self-Care Time of Disposition Decision: 15:21 Condition: Good Prescriptions / Home Meds: New hydrocodone-acetaminophen 5-325 mg tablet 1 tab PO Q6H PRN (Reason: pain) 3 Days Qty: 12 0RF Rx Instructions: DX: M25.511 methocarbamol 750 mg tablet 750 mg PO TID PRN (Reason: pain) Qty: 20 0RF ondansetron 4 mg tablet,disintegrating 4 mg PO Q6H PRN (Reason: nausea and vomiting) Qty: 12 0RF Print Language: Lithuanian Instructions: Shoulder Dislocation (ED), Procedural Sedation (ED) Referrals: Physician,Non-Staff, MD [Primary Care Provider] - 1 week Chente Carias MD [Physician] - 1 week
[2024-03-02] MEDS: ONDANSETRON PF 4 MG/2 ML VIAL IV (13:55)
[2024-03-02] MEDS: ETOMIDATE 20 MG/10 ML VIAL IVP (13:55)
[2024-03-02] MEDS: MIDAZOLAM HCL 2 MG/2 ML VIAL IV (13:55)
--- NOTE | 2024-03-02 14:07 | XR_ITS ---
The [address] [address] Patient Name: HERNESTO SAAVEDRA MRN: [id number] date: 1975 Sex: M Assigned Patient Location: ER Current Patient Location: ED.MAIN Accession/Order Number: [id number] Exam Date: 03/02/2024 14:10 Report Date: 03/02/2024 14:35 At the request of: TRISTAN MATA Procedure: XR shoulder RT min 2V PROCEDURE: XR shoulder RT min 2V HISTORY: Shoulder reduction COMPARISON: XR shoulder right 03/02/2024 1:40 PM FINDINGS: BONES:The humeral head is now seated within the glenoid. SOFT TISSUES:No visible soft tissue swelling. EFFUSION:None visible. OTHER: Negative. XR/XR shoulder RT min 2V IMPRESSION: 1. Successful reduction of right glenohumeral joint. 2. Inferior margin of the glenoid is not well seen on this study due to overlapping structures. Follow-up right shoulder radiographs for possible inferior rim fracture is recommended. Electronically authenticated by: CHENTE TRAORE Date: 03/02/2024 14:35
== END 2024-03-02 16:35 | disposition home or self-care (01) ==
PROVIDERS: Emergency Provider Emergency Medicine
DX: M24.411 Recurrent dislocation, right shoulder (principal)
CPT/HCPCS: 23650; 73030; 96374; 96375; 99152; 99285

== ENCOUNTER 2024-03-23 14:19 | Outpatient (OUT) | payer OTHER, SELFPAY ==
--- NOTE | 2024-03-23 14:24 | ECG_ITS ---
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
--- OUTSIDE RECORDS SUMMARY | 2024-03-23 14:26 | XMS_ITS | CCD ---
Author Organization [facility] Care Team Providers Care Internet Specialist Name Role Phone MISC, DOCTOR Attending Unavailable MISC, DOCTOR Consulting Unavailable MISC, DR GERBER Admitting Unavailable Allergies Allergy Classification Reported Allergen(s) Allergy Type Date of Onset Reaction(s) Facility (1 source) Aspirin Drug Allergy 01-25-2015 [facility] Repository (1 source) Penicillins Drug allergy (disorder) 01-25-2015 [facility] Repository Problems Active Problems Problem Classification Problem [...] spec) Not detected Normal NOT DETECTED [facility] Comment on above: Result Comment: This test is not yet candelaria roved or cleared by the [place] FDA. When there are no FDA-approved or cleared tests available, and other criteria are met, FDA can make tests available under an emergency access mechanism called an Emergency Use Authorization (EUA). The EUA for this test is supported by the [place] of Health and Human Service's (HHS's) declaration [...] SARS-CoV-2. Performed By: #### C VDTB #### [facility] [id number] Wally Hernandez Encounters Encounter Date Encounter Type Care Provider Facility Start: 07-17-2021 End: 07-17-[address] [place] [facility] [place] Payers Date Payer Category Payer Unknown [id number] 1960 Unknown [id number] Summary Purpose Family History No Family History Records Found Advance Directives No Advanced Directives Records Found Additional Source Comments (unrecognized sect ion and content) No Status Records Found INFORMATION SOURCE (unrecogn ized section and content) DATE CREATED AUTHOR 07/23/2021 The [facility] FOR RECORDS PERTAINING TO PATIENTS WHO ARE [...] BE BASED ON THE PRIMARY CLINICAL RECORDS. [employer] provides no warranty or guarantee of the accuracy or completeness of information in this document.
[2024-03-23 15:30] LABS: Anion Gap 14.6; BUN Creatinine Ratio 14.6; Calcium 8.9 mg/dL (8.5-10.1); Carbon Dioxide 25.6 mmol/L (21.0-32.0); Chloride 104 mmol/L (98-107); Estimated GFR (African America >60 (>=60); Estimated GFR (Non-African Ame >60 (>=60); Glucose 117 mg/dL (74-106); Potassium 4.2 mmol/L (3.5-5.1); Sodium 140 mmol/L (136-145)
[2024-03-23 15:42] LABS: Basophils Percent Auto 0.5 % (0.2-2.0); Eosinophils Absolute Auto 0.1 10^3/uL (0.0-0.7); Eosinophils Percent Auto 1.9 % (0.9-7.0); Hematocrit 47.6 % (42.0-54.0); Hemoglobin 16.2 g/dL (14.0-18.0); Immature Granulocytes Abs Auto 0.03 10^3/uL (0.00-0.03); Immature Granulocytes Pct Auto 0.5 % (0.0-0.5); Lymphocytes Absolute Auto 1.5 10^3/uL (1.2-3.8); Lymphocytes Percent Auto 25.5 % (20.5-60.0); Mean Corpuscular Hemoglobin 29.6 pg (25.9-34.0); Mean Corpuscular Volume 86.9 fL (80.0-94.0); Mean Platelet Volume 11.3 fL (9.5-13.5); Monocytes Absolute Auto 0.4 10^3/uL (0.3-0.8); Neutrophils Absolute Auto 3.7 10^3/uL (1.4-6.5); Neutrophils Percent Auto 64.6 % (43.0-75.0); Platelet Count 88 10^3/uL (150-450); Red Blood Count 5.48 10^6/uL (4.70-6.10); Red Cell Distribution Width 13.1 % (11.0-15.0); White Blood Count 5.7 10^3/uL (4.0-11.0)
== END 2024-03-23 14:20 | disposition home or self-care (01) ==
PROVIDERS: Visit Provider Orthopaedic Surgery
DX: Z01.810 Encounter for preprocedural cardiovascular examination (principal); Z01.812 Encounter for preprocedural laboratory examination; M25.311 Other instability, right shoulder
CPT/HCPCS: 80048; 85025; 93005

== ENCOUNTER 2024-08-15 12:56 | Emergency (ER) | payer OTHER, SELFPAY ==
[2024-08-15] VITALS (16 sets, daily range): BP systolic 136–185; BP diastolic 81–103; PULSE 77–96; TEMP 36.6; O2SAT 93–99; BMI 29.8
--- NOTE | 2024-08-15 13:10 | XR_ITS ---
The [address] [address] Patient Name: HERNESTO SAAVEDRA MRN: [id number] date: 1975 Sex: M Assigned Patient Location: ER Current Patient Location: Accession/Order Number: [id number] Exam Date: 08/15/2024 13:20 Report Date: 08/15/2024 13:56 At the request of: PABLO ERWIN Procedure: XR shoulder RT min 2V PROCEDURE: XR shoulder RT min 2V HISTORY: Probable dislocation ; right shoulder pain COMPARISON: XR shoulder right 03/02/2024 FINDINGS: BONES:Anterior-inferior dislocation of the humeral head from the glenoid. No appreciable fracture. Mild degenerative changes of acromioclavicular joint. SOFT TISSUES:No visible soft tissue swelling. EFFUSION:None visible. OTHER: Negative. XR/XR shoulder RT min 2V IMPRESSION: 1. Anterior-inferior glenohumeral dislocation. No appreciable fracture, but follow-up imaging is recommended. Electronically authenticated by: CHENTE TRAORE Date: 08/15/2024 13:56
--- NOTE | 2024-08-15 13:16 | ED_ITS ---
HPI HPI - Extremity Injury (Upper) General Chief Complaint: Extremity Injury, Upper Stated Complaint: UPPER RIGHT EXTREMITY PAIN Time Seen by Provider: 08/15/24 13:06 Source: patient Mode of arrival: walk-in History of Present Illness HPI narrative: 48-year-old male presents to the emergency department for pain in his right shoulder. He believes it is dislocated and this happened about 45 minutes before coming into the emergency department when he was trying to start his lawnmower. He has done this numerous times and has surgery scheduled for his shoulder. No weakness or numbness. Related Data Home Medications ?Medication ?Instructions ?Recorded ?Confirmed losartan 50 mg tablet mg 08/15/24 Previous Rx's ?Medication ?Instructions ?Recorded hydrocodone 5 mg-acetaminophen 325 1 tab PO Q6H PRN pain 5 days #20 08/15/24 mg tablet tabs Allergies Allergy/AdvReac Type Severity Reaction Status Date / Time aspirin Allergy Unknown Rash Verified 08/15/24 13:03 Penicillins Allergy Unknown Rash Verified 08/15/24 13:03 Opioid HPI Opioid Management Most Recent Pain and Opioid Data: Last Pain Scale 9 08/15/24 13:18 08/15/24 Review of Systems ROS Narrative A ten point review of systems is negative except as noted above. PFSH PFSH Medical History (Updated 08/15/24 @ 14:49 by Darek Brizuela MD) Labral tear of shoulder ?S43.439A - Superior glenoid labrum lesion of unspecified shoulder, initial encounter (ICD-10) Intellectual disability ?F79 - Unspecified intellectual disabilities (ICD-10) Neck injury ?S19.9XXA - Unspecified injury of neck, initial encounter (ICD-10) Brain tumor ?D49.6 - Neoplasm of unspecified behavior of brain (ICD-10) History of blood transfusion ?Z92.89 - Personal history of other medical treatment (ICD-10) Seizures ?R56.9 - Unspecified convulsions (ICD-10) Shoulder dislocation ?S43.006A - Unspecified dislocation of unspecified shoulder joint, initial encounter (ICD-10) Shoulder instability ?M25.319 - Other instability, unspecified shoulder (ICD-10) Social History (Updated 03/23/24 @ 14:43 by Tracey Cheek NP) Within the past year, how often did you have a drink containing alcohol: never Score interpretation: A score less than 4 is consistent with normal alcohol consumption. Smoking status: Never smoker Highest level of school completed/degree received: high school graduate Little interest or pleasure in doing things: not at all Feeling down, depressed, or hopeless: not at all Exam Narrative Exam Narrative: Nurses note and vital signs reviewed and patient is not hypoxic. General: The patient appears well and in no apparent distress. Skin: Warm, dry, no pallor noted. There is no rash noted. Head: Normocephalic, atraumatic Eye: Normal conjunctiva, no drainage Ears, Nose, Mouth, and Throat: oral mucosa is moist. Nares patent. Cardiovascular: Regular Rate and Rhythm Respiratory: Patient is in no distress, no accessory muscle use, lungs are clear to auscultation, no wheezing, rales or rhonchi Back: non-tender GI: Soft and nontender Musculoskeletal: Palpable deformity noted of the right shoulder. Skin intact. Neurological: A&O, normal speech; fingers have full range of motion, radial pulse 2+ on the right side Psychiatric: Cooperative Constitutional Vital Signs, click to edit/add: Last Vital Signs Temp 98 F 08/15/24 12:58 Pulse 79 08/15/24 14:15 Resp 14 08/15/24 14:15 BP 139/86 08/15/24 14:15 Pulse Ox 96 08/15/24 14:19 O2 Del Method Room Air 08/15/24 14:19 O2 Flow Rate 2 08/15/24 13:40 Course Vital Signs Vital signs: Vital Signs Temperature 98 F 08/15/24 12:58 Pulse Rate 82 08/15/24 12:58 Respiratory Rate 18 08/15/24 12:58 Blood Pressure 185/99 H 08/15/24 12:58 Pulse Oximetry 98 08/15/24 12:58 Oxygen Delivery Method Room Air 08/15/24 12:58 Temperature 98 F 08/15/24 12:58 Pulse Rate 79 08/15/24 14:15 Respiratory Rate 14 08/15/24 14:15 Blood Pressure 139/86 08/15/24 14:15 Pulse Oximetry 96 08/15/24 14:19 Oxygen Delivery Method Room Air 08/15/24 14:19 Oxygen Delivery Flow Rate 2 08/15/24 13:40 MDM - Extremity Injury (Upper) MDM Narrative Medical decision making narrative: The patient presented with shoulder dislocation and this has been reduced. He will follow-up with his orthopedist, and I have spoken with his orthopedist today. Treatment diagnosis and follow-up were discussed with the patient. Differential Diagnosis Differential diagnosis: Likely other (Shoulder dislocation, shoulder fracture, shoulder sprain) Imaging Data Right shoulder x-ray: Radiologist's impression: ITS Impressions Shoulder X-Ray 08/15/24 13:10 IMPRESSION: 1. Anterior-inferior glenohumeral dislocation. No appreciable fracture, but follow-up imaging is recommended. Electronically authenticated by: CHENTE TRAORE Date: 08/15/2024 13:56 Shoulder X-Ray 08/15/24 13:36 IMPRESSION: 1. Limited evaluation due to single projection. Findings compatible with successful reduction of the right glenohumeral joint. 2. No visible fracture. Consider follow-up radiographs. Electronically authenticated by: CHENTE TRAORE Date: 08/15/2024 14:07 Discharge Plan Discharge Chief Complaint: Extremity Injury, Upper Clinical Impression: Anterior dislocation of right shoulder Patient Disposition: Home, Self-Care Time of Disposition Decision: 14:49 Condition: Good Mode of Transportation: Private Vehicle Prescriptions / Home Meds: New hydrocodone-acetaminophen 5-325 mg tablet 1 tab PO Q6H PRN (Reason: pain) 5 Days Qty: 20 0RF No Action losartan 50 mg tablet Print Language: Malian Instructions: Shoulder Dislocation (ED), How to Use a Sling (ED), Moderate Sedation (ED) Additional Instructions: Follow-up with Dr. Carias Referrals: Physician,Non-Staff, MD [Primary Care Provider] - 1 week Procedures ED Procedure Instructions Procedures Procedures: The patient was given IV conscious sedation with 10 mg of IV etomidate. The patient was on monitor with respiratory present. This resulted in an excellent level of sedation. Total sedation time was 5 minutes, no complications, no desaturation. Under conscious sedation the following procedure was performed by me. External rotation method was utilized to reduce his shoulder with no complications. Postreduction x-ray on my interpretation shows appropriate reduction. Sling applied, application checked by me and found to be appropriate, he is neurovascularly intact.
--- OUTSIDE RECORDS SUMMARY | 2024-08-15 13:19 | XMS_ITS | CCD ---
Author Organization [facility] Care Team Providers Care Train Station Server Name Role Phone MISC, DOCTOR Attending Unavailable MISC, DR GERBER Consulting Unavailable MISC, DR GERBER Admitting Unavailable SCHLACHTER, JOSEPH Attending Unavailable SCHLACHTER, JOSEPH Referring Unavailable SCHLACHTER, JOSEPH Primary Care Unavailable SCHLACHTER, JOSEPH Referring Unavailable SCHLACHTER, JOSEPH Primary Care Unavailable Schlachter PATIENT FINANCIAL SERVICES MANAGER - PHOTOGRAPHER ASSISTANT, Joseph Primary Care [facility] [place] TONYA ALI F O Referring Unavailable SCHLACHTER, JOSEPH Primary Care Unavailable TONYA ALI F Julio César Attending Unavailable TONYA ALI F Julio César Referring Unavailable SCHLACHTER, JOSEPH Primary Care Unavailable Schlachter PATIENT FINANCIAL SERVICES MANAGER - PHOTOGRAPHER ASSISTANT, [facility] Care [place]vi [place] Allergies Allergy Classification Reported Allergen(s) Allergy Type Date of Onset Reaction(s) Facility Penicillins (antibiotic) (1 source) Penicillins Drug Allergy 4 [facility] Unclassified (1 source) asprin Allergy to substance 4 Unknown Reaction [facility] (3 sources) Aspirin; Translations: [ASPIRIN] Drug Allergy 5 [facility] Repository (3 sources) Penicillins; Translations: [PENICILLINS] Drug allergy (disorder) 5 [facility] Repository (2 sources) Aluminum aspirin Drug Allergy 9 [facility] (2 sources) Penicillins Propensity to adverse reactions to drug 9 [facility] Medications Current Medications Medication Drug Class(es) Dates Sig (Normalized) Sig (Original) clindamycin 300 mg oral capsule (1 source) Lincosamide Antibacterial Start: 04-05-2024 take 300 mg by mouth every eight hours Clindamycin Hcl Active 300 MG PO Q8H 30 10 Kelli 9th, 2024 12:00am ibuprofen 800 mg oral tablet (1 source) Nonsteroidal Anti-inflammatory Drug Start: 04-05-2024 take 800 mg by mouth every eight hours Ibuprofen Active 800 MG PO Q8H 21 April 05, 2024 12:00am Completed/Discontinued Medications Medication Drug Class(es) Dates Sig (Normalized) Sig (Original) valsartan 160 mg oral tablet (2 sources) Angiotensin 2 Receptor Edmund Start: 07-28-2024 End: 08-11-2024 take 1 tablet by mouth once daily valsartan (DIOVAN) 160 MG tablet Take 1 tablet by mouth daily 30 tablet 5 07/28/2024 08/11/2024 Discontinued (Side effects) Problems Active Problems Problem Classification Problem Date Documented Da te Episodic/Chronic Esophageal disorders (1 source) Esophageal varices without bleeding; Translations: [Esophageal varices without bleeding] Onset: 11-27-2020 Chronic Essential hypertension (3 sources) Essential hypertension; Translations: [Essential (primary) hypertension] Onset: 07-28-2024 07-28-2024 Chronic Hepatitis (1 source) Chronic viral hepatitis C; Translations: [Chronic viral hepatitis C] Onset: 06-07-2024 Chronic Neoplasms of unspecified nature or uncertain behavior (1 source) Neoplasm of unspecified behavior of brain; Translations: [Neoplasm of unspecified behavior of brain] Onset: 11-27-2020 Chronic Other liver diseases (1 source) Other cirrhosis of liver; Translations: [Other cirrhosis of liver] Onset: 06-07-2024 Chronic Other screening for suspected conditions (not mental disorders or infectious disease) (2 sources) Encounter for screening for malignant neoplasm of prostate; Translations: [Encounter for screening for malignant neoplasm of prostate] Onset: 06-07-2024 Episodic Unclassified (3 sources) CONTACT W/AND (SUSP) EXPOS COVID-19; Translations: [CONTACT W/AND (SUSP) EXPOS COVID-19] Onset: 07-22-2021 Unclassified (1 source) Annual Exam Onset: 06-07-2024 Past or Other Problems Problem Classification Problem Date Documented Da te Episodic/Chronic Unclassified (1 source) CONTACT W/AND (SUSP) EXPOS COVID-19; Translations: [CONTACT W/AND (SUSP) EXPOS COVID-19] Onset: 07-17-2021 Results Test Name Value Interpretation Reference Range Facility Cardiac echo study Procedure on 08-11-2024 Aortic Sinus Valsalva 3.6 cm [facility] Aortic Sinus Valsalva Index 1.56 cm/m2 [facility] AV Cusp Mmode 2.4 cm [facility] AV Mean Gradient 4 mmHg [facility] Mean Velocity 0.9 m/s [facility] AV Peak Gradient 7 mmHg [facility] Peak Velocity 1.3 m/s [facility] [place] AV Velocity Ratio 0.69 [facility] AV VTI 23.8 cm [facility] Body surface area Derived from formula 2.38 m2 Bon [facility] E/E' Lateral 4.88 [facility] [place] EF BP 61 % 55 - 100 % [facility] [place] Fractional Shortening 2D 36 % 28 - 44 % [facility] Interpretation and review of laboratory results Abnormal [facility] IVSd 1.1 cm Abnormal 0.6 - 1.0 cm [facility] LA Area 2C 19.6 cm2 [facility] Area 4C 17.2 cm2 [facility] LA Major [place] 5.2 cm [facility] LA Minor [place] 5.8 cm [facility] LA Volume BP 51 mL 18 - 58 mL [facility] LA Volume Index BP 22 ml/m2 16 - 34 ml/m2 [facility] LA Volume Index MOD A2C 24 ml/m2 16 - 34 ml/m2 [facility] LA Volume Index MOD A4C 19 ml/m2 16 - 34 ml/m2 [facility] LA Volume MOD A2C 55 mL 18 - 58 mL [facility] LA Volume MOD A4C 44 mL 18 - 58 mL [facility] LV E' Lateral Velocity 16.4 cm/s [facility] LV EDV A2C 77 mL [facility] LV EDV A4C 102 mL [facility] LV EDV Index A2C 33 mL/m2 [facility] LV EDV Index A4C 44 mL/m2 [facility] LV Ejection Fraction A2C 66 % [facility] LV Ejection Fraction A4C 56 % [facility] LV ESV A2C 26 mL [facility] LV ESV A4C 45 mL [facility] LV ESV Index A2C 11 mL/m2 [facility] LV ESV Index A4C 19 mL/m2 [facility] LV Mass 2D 168.9 g 88 - 224 g [facility] LV Mass 2D Index 73.1 g/m2 49 - 115 g/m2 [facility] LV RWT Ratio 0.50 [facility] LVIDd 4.4 cm 4.2 - 5.9 cm [facility] LVIDd Index 1.90 cm/m2 [facility] LVIDs 2.8 cm [facility] LVIDs Index 1.21 cm/m2 [facility] LVOT Mean Gradient 2 mmHg [facility] LVOT Peak Gradient 3 mmHg [facility] LVOT Peak Velocity 0.9 m/s [facility] LVOT VTI 16.1 cm [facility] LVOT:AV VTI Index 0.68 [facility] LVPWd 1.1 cm Abnormal 0.6 - 1.0 cm [facility] MV A Velocity 0.57 m/s [facility] MV E Velocity 0.80 m/s [facility] MV E Wave Deceleration Time 197.0 ms [facility] MV E/A 1.40 [facility] PV Max Velocity 1.0 m/s [facility] [place] PV Peak Gradient 4 mmHg [facility] Left Ventricle: Norm al left ventricular systolic function with a visually estimated EF of 60 - 65%. Left ventricle size is normal. Mildly increased wall thickness. Normal wall motion. Normal diastolic function. Right Ventricle: Right ventricle size is normal. Normal systolic function. No significant valvular abnormalities. Aorta: Normal sized aortic root. Pericardium: No pericardial effusion. No prior studies were available for comparison. Left Ventricle Normal left ventricular systolic function with a visually estimated EF of 60 - 65%. Left ventricle size is normal. Mildly increased wall thickness. Normal wall motion. Normal diastolic function. Right Ventricle Right ventricle size is normal. Normal systolic function. Left Atrium Left atrium size is normal. Right Atrium Right atrium size is normal. IVC/SVC IVC diameter is less than or equal to 21 mm and decreases greater than 50% during inspiration; therefore the estimated right atrial pressure is normal (~3 mmHg). IVC size is normal. Mitral Valve Valve structure is normal. No regurgitation. No stenosis noted. Tricuspid Valve Valve structure is normal. No regurgitation. No stenosis noted. Aortic Valve Valve structure is normal. No regurgitation. No stenosis. Pulmonic Valve The pulmonic valve visualization is suboptimal but appears to be functioning normally. Physiologically normal regurgitation. No stenosis noted. Ascending Aorta Normal sized aortic root. Pericardium No pericardial effusion. Study Details Image quality: adequate. No contrast was given. [facility] CV CPACS [facility] Radiology Study observation (narrative) [facility] Hemoglobin A1Con 07-29-2024 Glucose [Mass/Vol] 126 mg/dL Normal [facility] Comment on above: Result Comment: The ADA and AACC recommend providing the estimated average glucose result to permit better patient understanding of their HBA1c result. Performed By: #### G LYHGB #### [facility] [address] [place], [place] [phone] Juvenile Probation Officer: Manuel Lopez MD HbA1c (Bld) [Mass fraction] 6.0 % Normal 4.0-6.0 [facility] Comment on above: Performed By: #### G LYHGB #### [facility] [address] [place] [address] [phone] Juvenile Probation Officer: Manuel Lopez MD Lipid Panelon 07-28-2024 Cholesterol [Mass/Vol] 172 mg/dL 0 - 199 mg/dL [facility] Comment on above: Cholesterol Guidelines: <200 Desirable 200-240 Borderline >240 Undesirable Cholesterol in HDL [Mass/Vol] 26 mg/dL Low 40 - PINF mg/dL [facility] Comment on above: HDL Guidelines: <40 Undesirable 40-59 Borderline >59 Desirable Cholesterol in LDL [Mass/Vol] 115 mg/dL High 0 - 100 mg/dL [facility] Comment on above: LDL Guidelines: <100 Desirable 100-129 Near to/above Desirable 130-159 Borderline >159 Undesirable Direct (measured) LDL and calculated LDL are not interchangeable tests. Cholesterol in VLDL [Mass/Vol] 31 mg/dL High 1 - 30 mg/dL [facility] Cholesterol.total/Ch olesterol in HDL [Mass ratio] 6.6 {ratio} [facility] Interpretation and review of laboratory results Abnormal [facility] Triglyceride [Mass/Vol] 153 mg/dL High NINF - 150 mg/dL [facility] Comment on above: Triglyceride Guidelines: <150 Desirable 150-199 Borderline 200-499 High >499 Very high Based on AHA Guidelines for fasting triglyceride, June 2012. [facility] Lipid Profileon 07-28-2024 Cholesterol [Mass/Vol] 172 mg/dL Normal 0-199 [facility] Comment on above: Result Comment: Cholesterol Guidelines: <200 Desirable 200-240 Borderline >240 Undesirable Performed By: #### L IPR #### [facility] [address] [place] [phone] Juvenile Probation Officer: Manuel Lopez MD Cholesterol in HDL [Mass/Vol] 26 mg/dL Low >40 [facility] Comment on above: Result Comment: HDL Guidelines: <40 Undesirable 40-59 Borderline >59 Desirable Performed By: #### L IPR #### [facility] [address] [place] [id number] Juvenile Probation Officer: Manuel Lopez MD Cholesterol in LDL [Mass/Vol] 115 mg/dL High 0-100 [facility] Comment on above: Result Comment: LDL Guidelines: <100 Desirable 100-129 Near to/above Desirable 130-159 Borderline >159 Undesirable Direct (measured) LDL and calculated LDL are not interchangeable tests. Performed By: #### L IPR #### [facility] [address] [place] [address] Juvenile Probation Officer: Manuel Lopez MD Cholesterol in VLDL [Mass/Vol] 31 mg/dL High 1-30 [facility] Comment on above: Performed By: #### L IPR #### [facility] [place], [place] [phone] Juvenile Probation Officer: Manuel Lopez MD Cholesterol.total/Ch olesterol in HDL [Mass ratio] 6.6 {ratio} Normal [facility] Comment on above: Performed By: #### L IPR #### [facility] [address] [place] [address] Juvenile Probation Officer: Manuel Lopez MD Triglyceride [Mass/Vol] 153 mg/dL High <150 [facility] Comment on above: Result Comment: Triglyceride Guidelines: <150 Desirable 150-199 Borderline 200-499 High >499 Very high Based on AHA Guidelines for fasting triglyceride, June 2012. Performed By: #### L IPR #### [facility] [address] [place] [address] Juvenile Probation Officer: Manuel Lopez MD TSH With Reflex Ft4on 2023 TSH Qn 2.84 m[IU]/L [facility] TSH w/reflex to FT4on 2023 Thyroid Stim. Horm. 2.84 uIU/mL Normal 0.27-4.20 [facility] Comment on above: Performed By: #### T SHX #### [facility] [address] [place] [address] Juvenile Probation Officer: Mookie Peoples MD CBC AND AUTO DIFFon 06-27-20 24 ABSOLUTE BASOPHIL 0.1 X10E9/L Normal 0.0-0.2 [facility] Comment on above: Performed By: #### 2 857-1, CBCA, CMP, 02439-8 #### [facility] ([id number]) [address], [address] [place] [address] ABSOLUTE NEUTROPHIL 3.1 X10E9/L Normal 1.5-6.6 [facility] Comment on above: Performed By: #### 2 857-1, CBCA, CMP, 87593-3 #### [facility] ([id number]) [address] [place] [address] Basophils/100 WBC (Bld) 1.1 % Normal [facility] Comment on above: Performed By: #### 2 857-1, CBCA, CMP, 12707-1 #### [facility] ([id number]) [address] [place] [address] Eosinophils (Bld) [#/Vol] 0.2 10*3/uL Normal 0.0-0.4 [facility] Comment on above: Performed By: #### 2 857-1, CBCA, CMP, 50200-2 #### [facility] ([id number]) [address], [facility] [address] [place] [address] Eosinophils/100 WBC (Bld) 3.4 % Normal [facility] Comment on above: Performed By: #### 2 857-1, CBCA, CMP, 27421-1 #### [facility] ([id number]) [address] [address] [place] [address] Erythrocyte distribution width (RBC) [Ratio] 14.4 % Normal 11.5-15.0 [facility] Comment on above: Performed By: #### 2 857-1, CBCA, CMP, 89872-9 #### [facility] ([id number]) [address], [facility] [address] [place] [address] Hematocrit (Bld) [Volume fraction] 48.3 % Normal 39-49 [facility] Comment on above: Performed By: #### 2 857-1, CBCA, CMP, 51399-4 #### [facility] ([id number]) [address], [facility] [address] [place] [address] Hemoglobin (Bld) [Mass/Vol] 16.5 g/dL Normal 13.0-17.0 [facility] Comment on above: Performed By: #### 2 857-1, CBCA, CMP, 23355-2 #### [facility] ([id number]) [address], [facility] [address] [place] [address] Lymphocytes (Bld) [#/Vol] 2.0 10*3/uL Normal 1.0-3.5 [facility] Comment on above: Performed By: #### 2 857-1, CBCA, CMP, 48533-5 #### [facility] ([id number]) [address], [address] [place] [address] Lymphocytes/100 WBC (Bld) 33.7 % Normal [facility] Comment on above: Performed By: #### 2 857-1, CBCA, CMP, 04241-4 #### [facility] ([id number]) [address], [address] [place] [address] MCH (RBC) [Entitic mass] 30.4 pg Normal 27-34 [facility] Comment on above: Performed By: #### 2 857-1, CBCA, CMP, 51129-9 #### [facility] ([id number]) [address], [address] [place] [address] MCHC (RBC) [Mass/Vol] 34.1 g/dL Normal 32-36 [facility] Comment on above: Performed By: #### 2 857-1, CBCA, CMP, 41553-9 #### [facility] ([id number]) [address], [address] [place] [address] MCV (RBC) [Entitic vol] 89 fL Normal 80-100 [facility] Comment on above: Performed By: #### 2 857-1, CBCA, CMP, 14570-6 #### [facility] ([id number]) [address], [address] [place] [address] Monocytes (Bld) [#/Vol] 0.5 10*3/uL Normal 0-0.9 [facility] Comment on above: Performed By: #### 2 857-1, CBCA, CMP, 25138-4 #### [facility] ([id number]) [address], [address] [place] [address] Monocytes/100 WBC (Bld) 8.7 % Normal [facility] Comment on above: Performed By: #### 2 857-1, CBCA, CMP, 09171-5 #### [facility] ([id number]) [address], [facility] [address] [place] [address] Neutrophils/100 WBC (Bld) 53.1 % Normal [facility] Comment on above: Performed By: #### 2 857-1, CBCA, CMP, 00116-5 #### [facility] ([id number]) [address], [facility] [address] [place] [address] Platelet mean volume (Bld) [Entitic vol] 9.5 fL Normal 7-12 [facility] Comment on above: Performed By: #### 2 857-1, CBCA, CMP, 34965-7 #### [facility] ([id number]) [address], [facility] [address] [place] [address] Platelets (Bld) [#/Vol] 76 10*3/uL Low 150-450 [facility] Comment on above: Performed By: #### 2 857-1, CBCA, CMP, 94637-2 #### [facility] ([id number]) [address], [facility] [address] [place] [address] RBC COUNT 5.42 X10E12/L Normal 4.10-5.70 [facility] Comment on above: Performed By: #### 2 857-1, CBCA, CMP, 02768-8 #### [facility] ([id number]) [address] [address] [place] [address] WBC (Bld) [#/Vol] 5.9 10*3/uL Normal 4.0-11.0 [facility] Comment on above: Performed By: #### 2 857-1, CBCA, CMP, 72819-2 #### [facility] ([id number]) [address], [address] [place] [address] COMPREHENSIVE METABOLIC PANE Dieter 06-27-2024 Albumin [Mass/Vol] 4.2 g/dL Normal 3.2-5.3 [facility] Comment on above: Performed By: #### 2 857-1, CBCA, CMP, 86998-7 #### [facility] ([id number]) [address], [address] [place] [address] ALP [Catalytic activity/Vol] 108 U/L Normal 39-130 [facility] Comment on above: Performed By: #### 2 857-1, CBCA, CMP, 78783-3 #### [facility] ([id number]) [address], [address] [place] [address] ALT [Catalytic activity/Vol] 55 U/L High 0-40 [facility] Comment on above: Performed By: #### 2 857-1, CBCA, CMP, 26972-7 #### [facility] ([id number]) [address], [address] [place] [address] Anion gap [Moles/Vol] 10 mmol/L Normal 5-15 [facility] Comment on above: Performed By: #### 2 857-1, CBCA, CMP, 50434-9 #### [facility] ([id number]) [address], [address] [place] [address] AST [Catalytic activity/Vol] 41 U/L Normal 0-41 [facility] Comment on above: Performed By: #### 2 857-1, CBCA, CMP, 86756-8 #### [facility] ([id number]) [address], [address] [place] [address] Bilirubin [Mass/Vol] 0.9 mg/dL Normal 0.3-1.2 [facility] Comment on above: Performed By: #### 2 857-1, CBCA, CMP, 90588-1 #### [facility] ([id number]) [address], [address] [place] [address] Calcium [Mass/Vol] 9.4 mg/dL Normal 8.5-10.5 [facility] Comment on above: Performed By: #### 2 857-1, CBCA, CMP, 16485-9 #### [facility] ([id number]) [address], [facility] [address] [place] [address] Chloride [Moles/Vol] 101 mmol/L Normal 98-109 [facility] Comment on above: Performed By: #### 2 857-1, CBCA, CMP, 08172-2 #### [facility] ([id number]) [address] [address] [place] [address] CO2 [Moles/Vol] 28 mmol/L Normal 22-32 [facility] Comment on above: Performed By: #### 2 857-1, CBCA, CMP, 90097-5 #### [facility] ([id number]) [address] [address] [place] [address] Creatinine [Mass/Vol] 0.84 mg/dL Normal 0.60-1.30 [facility] Comment on above: Result Comment: METH OD TRACEABLE TO IDMS STANDARD Performed By: #### 2 857-1, CBCA, CMP, 94643-6 #### [facility] ([id number]) [address] [address] [place] [address] eGFR (CKD-EPI) NON-RACE DEPENDENT >90 Normal >59 [facility] Comment on above: Result Comment: Reported eGFR is based on the CKD-EPI 2020 equation that does not use a race coefficient. Performed By: #### 2 857-1, CBCA, CMP, 22725-7 #### [facility] ([id number]) [address] [address] [place] [address] Glucose [Mass/Vol] 123 mg/dL High 65-99 [facility] Comment on above: Performed By: #### 2 857-1, CBCA, CMP, 30412-9 #### [facility] ([id number]) [address] [place] [address] Potassium [Moles/Vol] 4.0 mmol/L Normal 3.5-5.0 [facility] Comment on above: Performed By: #### 2 857-1, CBCA, CMP, 72012-4 #### [facility] ([id number]) [address] [place] [address] Protein [Mass/Vol] 7.5 g/dL Normal 6.0-8.0 [facility] Comment on above: Performed By: #### 2 857-1, CBCA, CMP, 43959-2 #### [facility] ([id number]) [address], [address] [place] [address] Sodium [Moles/Vol] 139 mmol/L Normal 134-146 [facility] Comment on above: Performed By: #### 2 857-1, CBCA, CMP, 38775-1 #### [facility] ([id number]) [address] [place] [address] Urea nitrogen [Mass/Vol] 20 mg/dL Normal 5-23 [facility] Comment on above: Performed By: #### 2 857-1, CBCA, CMP, 09580-8 #### [facility] ([id number]) [address] [place] [address] Lipid 1996 panelon 4 Cholesterol [Mass/Vol] 147 mg/dL Low 150-200 [facility] Comment on above: Performed By: #### 2 857-1, CBCA, CMP, 82586-5 #### [facility] ([id number]) [address] [place] [address] Cholesterol in HDL [Mass/Vol] 22 mg/dL Low >39 [facility] Comment on above: Result Comment: HDL <40 mg/dL - High Risk HDL > or = 40mg/dL- Desirable HDL >60 mg/dL - Negative Risk Performed By: #### 2 857-1, CBCA, CMP, 26162-6 #### [facility] ([id number]) [address] [place] [address] Cholesterol in LDL [Mass/Vol] 54 mg/dL Normal <130 [facility] Comment on above: Result Comment: LDL <100 mg/dL - Desirable LDL >160 mg/dL - High Risk Performed By: #### 2 857-1, CBCA, CMP, 46778-4 #### [facility] ([id number]) [address], [address] [place] [address] Cholesterol in VLDL [Mass/Vol] 71 mg/dL High 0-30 [facility] Comment on above: Performed By: #### 2 857-1, CBCA, CMP, 95681-9 #### [facility] ([id number]) [address], [address] [place] [address] CHOLESTEROL:HDL 6.7 High 1.0-5.0 [facility] Comment on above: Performed By: #### 2 857-1, CBCA, CMP, 60662-7 #### [facility] ([id number]) [address], [address] [place] [address] Triglyceride [Mass/Vol] 356 mg/dL High 27-150 [facility] Comment on above: Performed By: #### 2 857-1, CBCA, CMP, 21723-3 #### [facility] ([id number]) [address], [address] [place] [address] Prostate specific Ag [Mass/V ol]on 06-27-2024 PSA SCREEN 0.55 ng/mL Normal 0.00-4.00 [facility] Comment on above: Result Comment: The method used for this test is Rachel [place] DXI chemiluminescent immunoassay. Values obtained by different assay methods cannot be used interchangeably. Performed By: #### 2 857-1, CBCA, CMP, 56618-2 #### [facility] ([id number]) [address], [address] [place] [address] Covid-19 PCR (CVDTB)on 06-29 SARS-CoV-2 (COVID-19) RNA RONDA+probe Ql (Unsp spec) Not detected Normal NOT DETECTED [facility] Comment on above: Result Comment: This test is not yet approved or cleared by the [place] FDA. When there are no FDA-approved or cleared tests available, and other criteria are met, FDA can make tests available under an emergency access mechanism called an Emergency Use Authorization (EUA). The EUA for this test is supported by the [place] of Health and Human Service's (HHS's) declaration [...] consistent with SARS-CoV-2. Performed By: #### C VDTBH #### [facility] [address] [address] [address] Wally Hernandez Vital Signs Date Time Vital Sign Value Performing Clinician Faci lity 08-11-2024 10:53-0500 Body height 180.3 cm Nini Roy MD Work Phone: [facility] 08-11-2024 10:53-0500 Body mass index (BMI) [Ratio] 34.74 kg/m2 Nini Roy MD Work Phone: [facility] 08-11-2024 10:53-0500 Body weight 112.95 kg Nini Roy MD Work Phone: [facility] 08-11-2024 10:53-0500 Diastolic blood pressure 91 mm[Hg] Nini Roy MD Work Phone: [facility] 08-11-2024 10:53-0500 Systolic blood pressure 155 mm[Hg] Nini Roy MD Work Phone: [facility] 04-05-2024 12:53-0400 Body height 180.34 cm [facility] 04-05-2024 12:53-0400 Body mass index (BMI) [Ratio] 33.7 kg/m2 [facility] 04-05-2024 12:53-0400 Body temperature 98.1 [degF] [facility] 04-05-2024 12:53-0400 Body weight 109.82 kg [facility] 04-05-2024 12:53-0400 Diastolic blood pressure 70 mm[Hg] [facility] 04-05-2024 12:53-0400 Heart rate 65 /min [facility] 04-05-2024 12:53-0400 Respiratory rate 18 /min [facility] 04-05-2024 12:53-0400 SaO2% (BldA) [Mass fraction] 96 % [facility] 04-05-2024 12:53-0400 Systolic blood pressure 112 mm[Hg] [facility] Encounters Encounter Date Encounter Type Care Provider Facility Start: 08-11-2024 ambulatory NINI ROY [facility] Start: 08-11-2024 End: 08-13-2024 Patient encounter status Nini Roy MD Work Phone: [facility] Work Phone: Start: 08-11-2024 End: 08-13-2024 Subsequent hospital visit by physician Nini Roy MD Work Phone: [facility] Comment on above: Preop cardiovascular exam; Primary hypertension Start: 07-28-2024 End: 07-28-2024 ambulatory NINI Angela [facility] Start: 07-28-2024 Encounter for preprocedural cardiovascular examination [facility] Start: 07-28-2024 End: 07-28-2024 Patient encounter status [facility] PATIENT FINANCIAL SERVICES MANAGER - PHOTOGRAPHER ASSISTANT Work Phone: [facility] Start: 07-28-2024 End: 07-28-2024 Subsequent hospital visit by physician Joseph Melendez APRN - PHOTOGRAPHER ASSISTANT Work Phone: [facility] Comment on above: Preop cardiovascular exam; Primary hypertension Start: 06-27-2024 End: 06-27-2024 ambulatory [facility] Start: 06-27-2024 Encounter for genera l adult medical examination without abnormal findings [facility] Start: 06-07-2024 End: 06-07-2024 ambulatory [facility] Start: 06-07-2024 Encounter for genera l adult medical examination without abnormal findings [facility] Start: 04-05-2024 End: 04-05-2024 ambulatory [facility] Work Phone: Start: 04-05-2024 End: 04-05-2024 Patient encounter procedure [facility] Work Phone: Start: 07-17-2021 End: 07-17-[address] DOCTOR JUAREZ Facility:[facility]1 Procedures Date Procedure Procedure Detail Performing Clinician Start: 08-11-2024 Echo tthrc r-t 2d w/wom-mode compl spec&colr d Nini Roy MD Work Phone: Start: 07-28-2024 Assay of thyroid stimulating hormone tsh Nini Roy MD Work Phone: Start: 07-28-2024 Lipid panel Nini dior MD Work Phone: Plan of Treatment Date Care Activity Detail Author Start: 07-28-2029 Lipid panel Lipids [facility] Start: 07-28-2025 Hemoglobin A1c measurement A1C test (Diabetic or Prediabetic) [facility] Start: 08-29-2024 End: 08-29-2024 Patient encounter procedure 08/29/2024 9:00 AM EST Office Visit [facility] [address] [place] [address] Nini Roy MD [address] [place] [phone] 3-4 week [facility] Comment on above: 3-4 week Start: 08-11-2024 End: 08-11-2024 Patient encounter procedure 08/11/2024 10:30 AM EST Appointment [facility] [address] [place], [place] [id number] Nini Roy MD [address] [place] [address], [place] [address] EPIC TEDDY W/ OFC [facility] Comment on above: EPIC TEDDY W/ OFC TAM[facility]KO Y Start: 05-29-2024 COVID-19 Vaccine ( season) COVID-19 Vaccine ( season) [facility] Start: 04-28-2024 Influenza vaccination Flu vaccine (# 1) [facility] Start: 2019 Screening for malign ant neoplasm of colon [facility] Start: 2009 Diabetes screen Diabetes screen [facility] Start: 1993 DTaP/Tdap/Td vaccine (1 - Tdap) DTaP/Tdap/Td vaccine (1 - Tdap) [facility] Start: 1993 Hepatitis B vaccine (1 of 3 - 19+ 3-dose series) Hepatitis B vaccine (1 of 3 - 19+ 3-dose series) [facility] Start: 1992 Hepatitis C screening Hepatitis C sc reen [facility] Start: 1989 HIV screening HIV screen [facility] [employer] Start: 1986 Depression Screen Depression Screen [facility] End: 07-28-2024 Hemoglobin A1c/Hemoglobin.total in Blood [facility] Comment on above: 1 Occurrences starti ng 07/28/2024 until 07/28/2024 Payers Date Payer Category Payer Medicaid [id number] 1975 Unknown [id number] 1975 Unknown [id number] 1975 Unknown [id number] 2.16.8 [id number] 1975 Unknown [id number] 2.16.8 [id number] 1975 Unknown [id number] [id number] [id number] 1959 Unknown [id number] Self-pay Self Pay [id number] Social History Date Type Detail Facility Tobacco smoking stat [facility] Unknown if ever smoked [facility] Work Phone: Start: 1975 Sex Assigned At Male F [facility] Start: 07-28-2024 [facility] End: 09-28-1993 History of tobacco use [facility] End: 09-28-1993 History of tobacco use [facility]arette [facility] Start: 07-28-2024 Alcoholic beverage intake Ex-drinker (finding) [facility] [employer] [facility] Start: 07-28-2024 History of Social function [facility] Start: 07-28-2024 Tobacco use panel [facility] [employer] Start: 1975 Sex assigned at Not on file [facility] History of Present illness Narrative 08-11-2024 Carina Rosales - 08/11/2024 10:30 AM EST Note Date & Type Note Facility 08-11-2024 History of Presen t illness Narrative Explained policies and procedure of an echocardiogram/Doppler study. documented in this encounter [facility] Evaluation note Note Date & Type Note Facility Evaluation note No assessment information availa [facility] Work Phone: Evaluation note Note Date & Type Note Facility Evaluation note Diagnosis Preop cardiovascular exam Pre-operative cardiovascular examination Primary hypertension Unspecified essential hypertension documented in this encounter [facility] Evaluation note Note Date & Type Note Facility Evaluation note Diagnosis Preop cardiovascular exam Pre-operative cardiovascular examination Primary hypertension Unspecified essential hypertension documented in this encounter [facility] [employer] [facility] Summary Purpose Family History No Family History Records FoundNo Family History Records FoundNo Family History Records FoundNo Family History Records Found Advance Directives Advance Directive Response Recorded Date/ Time Advance Directives No April 05 12:40pm Chief Complaint and Reason for Visit Chief Complaint Tooth pain Reason for Referral Specialty Diagnoses / Procedures Referred By Feng mccall Referred To Contact Diagnoses Preop cardiovascular exam Primary hypertension Procedures Echo (TTE) complete (PRN contrast/bubble/strain/3D) [place] ECHO TTHRC R-T 2D W/WOM-MODE COMPL SPEC&COLR D MN TTE W OR WO FOL WCON,DOPPLER Nini Roy MD [address] [place] [address] [place] [address] Referral ID Status Reason Start Date Expiration Date V isits Requested Visits Authorized [id number] Pending Review 08/10/2024 07/28/2025 1 1 Additional Source Comments (unrecognized sect ion and content) No Status Records FoundNo Status Records FoundNo Status Records FoundNo Status Records Found INFORMATION SOURCE (unrecogn ized section and content) DATE CREATED AUTHOR 07/23/2021 [facility] DATE CREATED AUTHOR AUTHOR'S ORGANIZ ATION 06/08/2024 [facility] DATE CREATED AUTHOR AUTHOR'S ORGANIZ ATION 06/29/2024 [facility] DATE CREATED AUTHOR AUTHOR'S ORGANIZ ATION [facility] Care Teams (unrecognized sec tion and content) Team Status: Active Member Role Status Dates PHYSICIAN NO FAMILY Primary Care Provider Active Team Status: Inactive Member Role Status Dates PHYSICIAN NO FAMILY Primary Care Provider Active Start: April 05, 2024 End: April 05, 2024 Audra Gilbert APRN Attending Provider Active Start: April 05, 2024 End: April 05, 2024 Train Station Server Relationship Specialty Start Date End Date Joseph Melendez APRN - PHOTOGRAPHER ASSISTANT [address] [place] [address] PCP - General Pediatric Rehabilitation 07/28/24 Train Station Server Relationship Specialty Start Date End Date Joseph Melendez APRN - CNP PCP - General Pediatric Rehabilitation 07/28/24 Goals (unrecognized section and content) Goals may be documented in a n alternate section Reason for Visit (unrecogniz ed section and content) Specialty Diagnoses / Procedures Referred By Feng t Referred To Contact Diagnoses Preop cardiovascular exam Primary hypertension Procedures Echo (TTE) complete (PRN contrast/bubble/strain/3D) MN ECHO TTHRC R-T 2D W/WOM-MODE COMPL SPEC&COLR D MN TTE W OR WO KIKE WCON,Nini Galeana MD [address] [place] [address] [place] [address] Referral ID Status Reason Start Date Expiration Date V isits Requested Visits Authorized [id number] Pending Review 08/10/2024 07/28/2025 1 1 FOR RECORDS PERTAINING TO PATIENTS WHO ARE [...] BE BASED ON THE PRIMARY CLINICAL RECORDS. [facility]. provides no warranty or guarantee of the accuracy or completeness of information in this document.
--- NOTE | 2024-08-15 13:36 | XR_ITS ---
The [address] [address] Patient Name: HERNESTO SAAVEDRA MRN: [id number] date: 1975 Sex: M Assigned Patient Location: ER Current Patient Location: Accession/Order Number: [id number] Exam Date: 08/15/2024 13:46 Report Date: 08/15/2024 14:07 At the request of: PABLO ERWIN Procedure: XR shoulder RT 1V PROCEDURE: XR shoulder RT 1V HISTORY: Postreduction COMPARISON: XR shoulder right 08/15/2024 1:12 PM FINDINGS: BONES:The humeral head now projects over the glenoid. SOFT TISSUES:No visible soft tissue swelling. EFFUSION:None visible. OTHER: Negative. XR/XR shoulder RT 1V IMPRESSION: 1. Limited evaluation due to single projection. Findings compatible with successful reduction of the right glenohumeral joint. 2. No visible fracture. Consider follow-up radiographs. Electronically authenticated by: CHENTE TRAORE Date: 08/15/2024 14:07
[2024-08-15] MEDS: ETOMIDATE 20 MG/10 ML VIAL IVP (13:41)
== END 2024-08-15 15:12 | disposition home or self-care (01) ==
PROVIDERS: Emergency Provider Emergency Medicine
DX: S43.014A Anterior dislocation of right humerus, initial encounter (principal); X50.9XXA Other and unspecified overexertion or strenuous movements or postures, initial encounter
CPT/HCPCS: 23650; 99152; 73020; 73030; 99285

== ENCOUNTER 2024-09-01 10:12 | Outpatient (OUT) | payer OTHER, SELFPAY ==
--- OUTSIDE RECORDS SUMMARY | 2024-09-01 10:21 | XMS_ITS | CCD ---
Author Organization [facility] [employer] Care Team Providers Care Meal Temperer Name Role Phone MISC, DOCTOR Attending Unavailable MISC, DR GERBER Consulting Unavailable MISC, DR GERBER Admitting Unavailable SCHLACHTER, JOSEPH Attending Unavailable SCHLACHTER, JOSEPH Referring Unavailable SCHLACHTER, JOSEPH Primary Care Unavailable SCHLACHTER, JOSEPH Referring Unavailable SCHLACHTER, JOSEPH Primary Care Unavailable Schlachter PRESALES SENIOR SPECIALIST - HOOP 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 MACHINE, Joseph Primary Care Provi clifton Schlachter PRESALES SENIOR SPECIALIST - HOOP 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 MACHINE, Joseph Primary Care Provi clifton NINI ROY Referring Unavailable SCHLACHTER, JOSEPH Primary Care Unavailable TONYA ALI F Julio César Attending Unavailable AHLISS ALI F O Referring Unavailable SCHLACHTER, JOSEPH Primary Care Unavailable Allergies Allergy Classification Reported Allergen(s) Allergy Type Date of Onset Reaction(s) Facility Penicillins (antibiotic) (1 source) Penicillins Drug Allergy 4 [facility] Unclassified (1 source) asprin Allergy to substance 4 Unknown Reaction [facility] (3 sources) Aspirin; Translations: [ASPIRIN] Drug Allergy 5 [facility] (3 sources) Penicillins; Translations: [PENICILLINS] Drug allergy (disorder) 5 [facility] (2 sources) Aluminum aspirin Drug Allergy 9 [facility] (2 sources) Penicillins Propensity to adverse reactions to drug 9 [facility] Medications Current Medications Medication Drug Class(es) [...] 08-11-2024 Aortic Sinus Valsalva 3.6 cm [facility] [employer] Aortic Sinus Valsalva Index 1.56 cm/m2 [facility] [employer] AV Cusp Mmode 2.4 cm [facility] [employer] AV Mean Gradient 4 mmHg [facility] [employer] AV Mean Velocity 0.9 m/s [facility] [employer] AV Peak Gradient 7 mmHg [facility] [employer] AV Peak Velocity 1.3 m/s [facility] [employer] AV Velocity Ratio 0.69 [facility] [employer] AV VTI 23.8 cm [facility] [employer] Body surface area Derived from formula 2.38 m2 [facility] [employer] E/E' Lateral 4.88 [facility] [employer] EF BP 61 % 55 - 100 % [facility] [employer] Fractional Shortening 2D 36 % 28 - 44 % [facility] [employer] Interpretation and review of laboratory results Abnormal [facility] [employer] IVSd 1.1 cm Abnormal 0.6 - 1.0 cm [facility] [employer] LA Area 2C 19.6 cm2 [facility] Area 4C 17.2 cm2 [facility] [employer] LA Major [place] 5.2 cm [facility] [employer] LA Minor [place] 5.8 cm [facility] [employer] LA Volume BP 51 mL 18 - 58 mL [facility] [employer] LA Volume Index BP 22 ml/m2 16 - 34 ml/m2 [facility] [employer] LA Volume Index MOD A2C 24 ml/m2 16 - 34 ml/m2 [facility] [employer] LA Volume Index MOD A4C 19 ml/m2 16 - 34 ml/m2 [facility] [employer] LA Volume MOD A2C 55 mL 18 - 58 mL [facility] [employer] LA Volume MOD A4C 44 mL 18 - 58 mL [facility] [employer] LV E' Lateral Velocity 16.4 cm/s [facility] EDV A2C 77 mL [facility] [employer] LV EDV A4C 102 mL [facility] [employer] LV EDV Index A2C 33 mL/m2 [facility] [employer] LV EDV Index A4C 44 mL/m2 [facility] [employer] LV Ejection Fraction A2C 66 % [facility] LV Ejection Fraction A4C 56 % [facility] LV ESV A2C 26 mL [facility] ESV A4C 45 mL [facility] LV ESV Index A2C 11 mL/m2 [facility] LV ESV Index A4C 19 mL/m2 [facility] LV Mass 2D 168.9 g 88 - 224 g [facility] LV Mass 2D Index 73.1 g/m2 49 - 115 g/m2 [facility] [employer] LV RWT Ratio 0.50 [facility] LVIDd 4.4 cm 4.2 - 5.9 cm [facility] LVIDd Index 1.90 cm/m2 [facility] LVIDs 2.8 cm [facility] LVIDs Index 1.21 cm/m2 [facility] LVOT Mean Gradient 2 mmHg [facility] LVOT Peak Gradient 3 mmHg [facility] LVOT Peak Velocity 0.9 m/s [facility] LVOT VTI 16.1 cm [facility] LVOT:AV VTI Index 0.68 [facility] [employer] LVPWd 1.1 cm Abnormal 0.6 - 1.0 cm [facility] MV A Velocity 0.57 m/s [facility] MV E Velocity 0.80 m/s [facility] MV E Wave Deceleration Time 197.0 ms [facility] MV E/A 1.40 [facility] [employer] PV Max Velocity 1.0 m/s [facility] [employer] PV Peak Gradient 4 mmHg [facility] Left Ventricle: Norm al left ventricular [...] Image quality: adequate. No contrast was given. [facility] CV CPACS [facility] Radiology Study observation (narrative) [facility] Hemoglobin A1Con 07-29-2024 Glucose [Mass/Vol] 126 mg/dL Normal [facility] Comment on above: Result Comment: The ADA and AACC recommend providing the estimated average glucose result to permit better patient understanding of their HBA1c result. Performed By: #### G LYHGB #### [facility] [address] [place], [place] [id number] [employer]: Manuel Lopez MD HbA1c (Bld) [Mass fraction] 6.0 % Normal 4.0-6.0 [facility] Comment on above: Performed By: #### G LYHGB #### [facility] [address] [place] [address] [id number] [employer]: Manuel Lopez MD Lipid Panelon 07-28-2024 Cholesterol [Mass/Vol] 172 mg/dL 0 - 199 mg/dL [facility] Comment on above: Cholesterol Guidelines: <200 Desirable 200-240 Borderline >240 Undesirable Cholesterol in HDL [Mass/Vol] 26 mg/dL Low 40 - PINF mg/dL [facility] Comment on above: HDL Guidelines: <40 Undesirable 40-59 Borderline >59 Desirable Cholesterol in LDL [Mass/Vol] 115 mg/dL High 0 - 100 mg/dL [facility] [employer] Comment on above: LDL Guidelines: <100 Desirable 100-129 Near to/above Desirable 130-159 Borderline >159 Undesirable Direct (measured) LDL and calculated LDL are not interchangeable tests. Cholesterol in VLDL [Mass/Vol] 31 mg/dL High 1 - 30 mg/dL [facility] Cholesterol.total/Ch olesterol in HDL [Mass ratio] 6.6 {ratio} [facility] Interpretation and review of laboratory results Abnormal [facility] Triglyceride [Mass/Vol] 153 mg/dL High NINF - 150 mg/dL [facility] Comment on above: Triglyceride Guidelines: <150 Desirable 150-199 Borderline 200-499 High >499 Very high Based on AHA Guidelines for fasting triglyceride, June 2012. [facility] Lipid Profileon 07-28-2024 Cholesterol [Mass/Vol] 172 mg/dL Normal 0-199 [facility] Comment on above: Result Comment: Cholesterol Guidelines: <200 Desirable 200-240 Borderline >240 Undesirable Performed By: #### L IPR #### [facility] [address] [place] [address] [id number] [employer]: Manuel Lopez MD Cholesterol in HDL [Mass/Vol] 26 mg/dL Low >40 [facility] Comment on above: Result Comment: HDL Guidelines: <40 Undesirable 40-59 Borderline >59 Desirable Performed By: #### L IPR #### [facility] [address] [place] [address] [id number] [employer]: Manuel Lopez MD Cholesterol in LDL [Mass/Vol] 115 mg/dL High 0-100 [facility] Comment on above: Result Comment: LDL Guidelines: <100 Desirable 100-129 Near to/above Desirable 130-159 Borderline >159 Undesirable Direct (measured) LDL and calculated LDL are not interchangeable tests. Performed By: #### L IPR #### [facility] [address] [place] [address] [employer]: Manuel oLpez MD Cholesterol in VLDL [Mass/Vol] 31 mg/dL High 1-30 [facility] Comment on above: Performed By: #### L IPR #### [facility] [place], [place] [id number] [employer]: Manuel Lopez MD Cholesterol.total/Ch olesterol in HDL [Mass ratio] 6.6 {ratio} Normal [facility] Comment on above: Performed By: #### L IPR #### [facility] [address] [place] [address] [employer]: Manuel Lopez MD Triglyceride [Mass/Vol] 153 mg/dL High <150 [facility] Comment on above: Result Comment: Triglyceride Guidelines: <150 Desirable 150-199 Borderline 200-499 High >499 Very high Based on AHA Guidelines for fasting triglyceride, June 2012. Performed By: #### L IPR #### [facility] [address] [place] [address] [employer]: Manuel Lopez MD TSH With Reflex Ft4on 2023 TSH Qn 2.84 m[IU]/L [facility] Bon [facility] TSH w/reflex to FT4on 2023 Thyroid Stim. Horm. 2.84 uIU/mL Normal 0.27-4.20 [facility] Comment on above: Performed By: #### T SHX #### [facility] [address] [place] [address] [employer]: Mookie Peoples MD CBC AND AUTO DIFFon 06-27-20 24 ABSOLUTE BASOPHIL 0.1 X10E9/L Normal 0.0-0.2 [facility] Comment on above: Performed By: #### 2 857-1, CBCA, CMP, 29345-2 #### [facility] ([id number]) [address], [address] [place] [address] ABSOLUTE NEUTROPHIL 3.1 X10E9/L Normal 1.5-6.6 [facility] Comment on above: Performed By: #### 2 857-1, CBCA, CMP, 00178-4 #### [facility] ([id number]) [address], [address] [place] [address] Basophils/100 WBC (Bld) 1.1 % Normal [facility] Comment on above: Performed By: #### 2 857-1, CBCA, CMP, 64895-0 #### [facility] ([id number]) [address] [address] [place] [address] Eosinophils (Bld) [#/Vol] 0.2 10*3/uL Normal 0.0-0.4 [facility] Comment on above: Performed By: #### 2 857-1, CBCA, CMP, 22699-6 #### [facility] ([id number]) [address], [facility] [address] [place] [address] Eosinophils/100 WBC (Bld) 3.4 % Normal [facility] Comment on above: Performed By: #### 2 857-1, CBCA, CMP, 44245-1 #### [facility] ([id number]) [address] [address] [place] [address] Erythrocyte distribution width (RBC) [Ratio] 14.4 % Normal 11.5-15.0 [facility] Comment on above: Performed By: #### 2 857-1, CBCA, CMP, 92621-2 #### [facility] ([id number]) [address], [facility] [address] [place] [address] Hematocrit (Bld) [Volume fraction] 48.3 % Normal 39-49 [facility] Comment on above: Performed By: #### 2 857-1, CBCA, CMP, 45117-6 #### [facility] ([id number]) [address], [facility] [address] [place] [address] Hemoglobin (Bld) [Mass/Vol] 16.5 g/dL Normal 13.0-17.0 [facility] Comment on above: Performed By: #### 2 857-1, CBCA, CMP, 82404-6 #### [facility] ([id number]) [address], [facility] [address] [place] [address] Lymphocytes (Bld) [#/Vol] 2.0 10*3/uL Normal 1.0-3.5 [facility] Comment on above: Performed By: #### 2 857-1, CBCA, CMP, 85733-1 #### [facility] ([id number]) [address], [address] [place] [address] Lymphocytes/100 WBC (Bld) 33.7 % Normal [facility] Comment on above: Performed By: #### 2 857-1, CBCA, CMP, 69038-7 #### [facility] ([id number]) [address], [address] [place] [address] MCH (RBC) [Entitic mass] 30.4 pg Normal 27-34 [facility] Comment on above: Performed By: #### 2 857-1, CBCA, CMP, 15767-6 #### [facility] ([id number]) [address], [address] [place] [address] MCHC (RBC) [Mass/Vol] 34.1 g/dL Normal 32-36 [facility] Comment on above: Performed By: #### 2 857-1, CBCA, CMP, 95778-3 #### [facility] ([id number]) [address], [address] [place] [address] MCV (RBC) [Entitic vol] 89 fL Normal 80-100 [facility] Comment on above: Performed By: #### 2 857-1, CBCA, CMP, 69844-0 #### [facility] ([id number]) [address], [address] [place] [address] Monocytes (Bld) [#/Vol] 0.5 10*3/uL Normal 0-0.9 [facility] Comment on above: Performed By: #### 2 857-1, CBCA, CMP, 51764-3 #### [facility] ([id number]) [address], [address] [place] [address] Monocytes/100 WBC (Bld) 8.7 % Normal [facility] Comment on above: Performed By: #### 2 857-1, CBCA, CMP, 96754-1 #### [facility] ([id number]) [address], [facility] [address] [place] [address] Neutrophils/100 WBC (Bld) 53.1 % Normal [facility] Comment on above: Performed By: #### 2 857-1, CBCA, CMP, 35380-6 #### [facility] ([id number]) [address], [facility] [address] [place] [address] Platelet mean volume (Bld) [Entitic vol] 9.5 fL Normal 7-12 [facility] Comment on above: Performed By: #### 2 857-1, CBCA, CMP, 73768-2 #### [facility] ([id number]) [address], [facility] [address] [place] [address] Platelets (Bld) [#/Vol] 76 10*3/uL Low 150-450 [facility] Comment on above: Performed By: #### 2 857-1, CBCA, CMP, 43217-6 #### [facility] ([id number]) [address], [facility] [address] [place] [address] RBC COUNT 5.42 X10E12/L Normal 4.10-5.70 [facility] Comment on above: Performed By: #### 2 857-1, CBCA, CMP, 98885-5 #### [facility] ([id number]) [address] [address] [place] [address] WBC (Bld) [#/Vol] 5.9 10*3/uL Normal 4.0-11.0 [facility] Comment on above: Performed By: #### 2 857-1, CBCA, CMP, 80622-5 #### [facility] ([id number]) [address], [address] [place] [address] COMPREHENSIVE METABOLIC PANE Dieter 06-27-2024 Albumin [Mass/Vol] 4.2 g/dL Normal 3.2-5.3 [facility] Comment on above: Performed By: #### 2 857-1, CBCA, CMP, 94043-4 #### [facility] ([id number]) [address], [address] [place] [address] ALP [Catalytic activity/Vol] 108 U/L Normal 39-130 [facility] Comment on above: Performed By: #### 2 857-1, CBCA, CMP, 82140-4 #### [facility] ([id number]) [address], [address] [place] [address] ALT [Catalytic activity/Vol] 55 U/L High 0-40 [facility] Comment on above: Performed By: #### 2 857-1, CBCA, CMP, 21609-5 #### [facility] ([id number]) [address], [address] [place] [address] Anion gap [Moles/Vol] 10 mmol/L Normal 5-15 [facility] Comment on above: Performed By: #### 2 857-1, CBCA, CMP, 96307-4 #### [facility] ([id number]) [address], [address] [place] [address] AST [Catalytic activity/Vol] 41 U/L Normal 0-41 [facility] Comment on above: Performed By: #### 2 857-1, CBCA, CMP, 05267-7 #### [facility] ([id number]) [address], [address] [place] [address] Bilirubin [Mass/Vol] 0.9 mg/dL Normal 0.3-1.2 [facility] Comment on above: Performed By: #### 2 857-1, CBCA, CMP, 03851-7 #### [facility] ([id number]) [address], [address] [place] [address] Calcium [Mass/Vol] 9.4 mg/dL Normal 8.5-10.5 [facility] Comment on above: Performed By: #### 2 857-1, CBCA, CMP, 03765-9 #### [facility] ([id number]) [address], [facility] [address] [place] [address] Chloride [Moles/Vol] 101 mmol/L Normal 98-109 [facility] Comment on above: Performed By: #### 2 857-1, CBCA, CMP, 92045-6 #### [facility] ([id number]) [address] [address] [place] [address] CO2 [Moles/Vol] 28 mmol/L Normal 22-32 [facility] Comment on above: Performed By: #### 2 857-1, CBCA, CMP, 71907-3 #### [facility] ([id number]) [address] [address] [place] [address] Creatinine [Mass/Vol] 0.84 mg/dL Normal 0.60-1.30 [facility] Comment on above: Result Comment: METH OD TRACEABLE TO IDMS STANDARD Performed By: #### 2 857-1, CBCA, CMP, 33755-8 #### [facility] ([id number]) [address] [address] [place] [address] eGFR (CKD-EPI) NON-RACE DEPENDENT >90 Normal >59 [facility] Comment on above: Result Comment: Reported eGFR is based on the CKD-EPI 2020 equation that does not use a race coefficient. Performed By: #### 2 857-1, CBCA, CMP, 24822-2 #### [facility] ([id number]) [address] [address] [place] [address] Glucose [Mass/Vol] 123 mg/dL High 65-99 [facility] Comment on above: Performed By: #### 2 857-1, CBCA, CMP, 76336-7 #### [facility] ([id number]) [address], [address] [place] [address] Potassium [Moles/Vol] 4.0 mmol/L Normal 3.5-5.0 [facility] Comment on above: Performed By: #### 2 857-1, CBCA, CMP, 75460-3 #### [facility] ([id number]) [address], [address] [place] [address] Protein [Mass/Vol] 7.5 g/dL Normal 6.0-8.0 [facility] Comment on above: Performed By: #### 2 857-1, CBCA, CMP, 88352-6 #### [facility] ([id number]) [address], [address] [place] [address] Sodium [Moles/Vol] 139 mmol/L Normal 134-146 [facility] Comment on above: Performed By: #### 2 857-1, CBCA, CMP, 35229-2 #### [facility] ([id number]) [address], [address] [place] [address] Urea nitrogen [Mass/Vol] 20 mg/dL Normal 5-23 [facility] Comment on above: Performed By: #### 2 857-1, CBCA, CMP, 91896-5 #### [facility] ([id number]) [address], [address] [place] [address] Lipid 1996 panelon 4 Cholesterol [Mass/Vol] 147 mg/dL Low 150-200 [facility] Comment on above: Performed By: #### 2 857-1, CBCA, CMP, 29609-8 #### [facility] ([id number]) [address], [address] [place] [address] Cholesterol in HDL [Mass/Vol] 22 mg/dL Low >39 [facility] Comment on above: Result Comment: HDL <40 mg/dL - High Risk HDL > or = 40mg/dL- Desirable HDL >60 mg/dL - Negative Risk Performed By: #### 2 857-1, CBCA, CMP, 70497-2 #### [facility] ([id number]) [address], [address] [place] [address] Cholesterol in LDL [Mass/Vol] 54 mg/dL Normal <130 [facility] Comment on above: Result Comment: LDL <100 mg/dL - Desirable LDL >160 mg/dL - High Risk Performed By: #### 2 857-1, CBCA, CMP, 69601-9 #### [facility] ([id number]) [address], [address] [place] [address] Cholesterol in VLDL [Mass/Vol] 71 mg/dL High 0-30 [facility] Comment on above: Performed By: #### 2 857-1, CBCA, CMP, 47373-0 #### [facility] ([id number]) [address], [address] [place] [address] CHOLESTEROL:HDL 6.7 High 1.0-5.0 [facility] Comment on above: Performed By: #### 2 857-1, CBCA, CMP, 57960-2 #### [facility] ([id number]) [address], [address] [place] [address] Triglyceride [Mass/Vol] 356 mg/dL High 27-150 [facility] Comment on above: Performed By: #### 2 857-1, CBCA, CMP, 48912-4 #### [facility] ([id number]) [address] [facility], [address] [place] [address] Prostate specific Ag [Mass/V ol]on 06-27-2024 PSA SCREEN 0.55 ng/mL Normal 0.00-4.00 [facility] Comment on above: Result Comment: The method used for this test is Rachel [place] DXI chemiluminescent immunoassay. Values obtained by different assay methods cannot be used interchangeably. Performed By: #### 2 857-1, CBCA, CMP, 84645-5 #### [facility] ([id number]) [address] [facility], [address] [place] [address] Covid-19 PCR (CVDTB)on 06-29 SARS-CoV-2 (COVID-19) RNA [...] for this test is supported by the Cytotechnologist/Histotechnologist of Health and Human Service's (HHS's) declaration [...] SARS-CoV-2. Performed By: #### C VDTBH #### [facility] [address] [address] [address] Wally Hernandez Vital Signs Date Time Vital Sign Value Performing Clinician Faci lity 08-11-2024 10:53-0500 Body height 180.3 cm Nini Roy MD [email or web address] 08-11-2024 10:53-0500 Body mass index (BMI) [Ratio] 34.74 kg/m2 Nini Roy MD Work Phone: [facility] 08-11-2024 10:53-0500 Body weight 112.95 kg Nini Roy MD Work Phone: [facility] 08-11-2024 10:53-0500 Diastolic blood pressure 91 mm[Hg] Nini Roy MD Work Phone: [facility] 08-11-2024 10:53-0500 Systolic blood pressure 155 mm[Hg] Nini Roy MD Work Phone: [facility] 04-05-2024 12:53-0400 Body height 180.34 cm [facility] 04-05-2024 12:53-0400 Body mass index (BMI) [Ratio] 33.7 kg/m2 [facility] 04-05-2024 12:53-0400 Body temperature 98.1 [degF] [facility] 04-05-2024 12:53-0400 Body weight 109.82 kg [facility] 04-05-2024 12:53-0400 Diastolic blood pressure 70 mm[Hg] [facility] 04-05-2024 12:53-0400 Heart rate 65 /min [facility] 04-05-2024 12:53-0400 Respiratory rate 18 /min [facility] 04-05-2024 12:53-0400 SaO2% (BldA) [Mass fraction] 96 % [facility] 04-05-2024 12:53-0400 Systolic blood pressure 112 mm[Hg] [facility] Encounters Encounter Date Encounter Type Care Provider Facility Start: 08-11-2024 End: 08-13-2024 ambulatory NINI ROY [facility] Start: 08-11-2024 End: 08-13-2024 Patient encounter status Nini Roy MD Work Phone: [facility] Work Phone: Start: 08-11-2024 End: 08-13-2024 Subsequent hospital visit by physician Nini Roy MD Work Phone: [facility] Comment on above: Preop cardiovascular exam; Primary hypertension Start: 07-28-2024 End: 07-28-2024 ambulatory NINI Angela [facility] Start: 07-28-2024 Encounter for preprocedural cardiovascular examination [facility] Start: 07-28-2024 End: 07-28-2024 Patient encounter status [facility] - 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: [facility] Start: 07-28-2024 End: 07-28-2024 Subsequent hospital visit by physician Joseph Melendez APRN - VIDA Work Phone: [facility] Comment on above: Preop cardiovascular exam; Primary hypertension Start: 06-27-2024 End: 06-27-2024 ambulatory [facility] Start: 06-27-2024 Encounter for genera l adult medical examination without abnormal findings [facility] Start: 06-07-2024 End: 06-07-2024 ambulatory [facility] Start: 06-07-2024 Encounter for genera l adult medical examination without abnormal findings [facility] Start: 04-05-2024 End: 04-05-2024 ambulatory [facility] Work Phone: Start: 04-05-2024 End: 04-05-2024 Patient encounter procedure [facility] Work Phone: Start: 07-17-2021 [...] Detail Author Start: 07-28-2029 Lipid panel Lipids [facility] Start: 07-28-2025 Hemoglobin A1c measurement A1C test (Diabetic or Prediabetic) [facility] Start: 08-29-2024 End: 08-29-2024 Patient encounter procedure 08/29/2024 9:00 AM EST Office Visit [facility] [address] [address] Nini Roy MD [address] [place] [address] [facility] [place] [address] 3-[address] [facility] Comment on above: 3-4 week Start: 08-11-2024 End: 08-11-2024 Patient encounter procedure 08/11/2024 10:30 AM EST Appointment [facility] Non-Invasive Cardiology [address] [place] [id number] Nini Roy MD [address] [place] [address] [facility] [id number] EPIC TEDDY W/ OFC [facility] Comment on above: EPIC TEDDY W/ OFC [facility] Start: 05-29-2024 COVID-19 Vaccine ( season) COVID-19 Vaccine ( season) [facility] Start: 04-28-2024 Influenza vaccination Flu vaccine (# 1) [facility] Start: 2019 Screening for malign ant neoplasm of colon [facility] Start: 2009 Diabetes screen Diabetes screen [facility] Start: 1993 DTaP/Tdap/Td vaccine (1 - Tdap) DTaP/Tdap/Td vaccine (1 - Tdap) [facility] Start: 1993 Hepatitis B vaccine (1 of 3 - 19+ 3-dose series) Hepatitis B vaccine (1 of 3 - 19+ 3-dose series) [facility] Start: 1992 Hepatitis C screening Hepatitis C sc reen [facility] [employer] Start: 1989 HIV screening HIV screen [facility] [employer] Start: 1986 Depression Screen Depression Screen [facility] End: 07-28-2024 Hemoglobin A1c/Hemoglobin.total in Blood [facility] [employer] Comment on above: 1 Occurrences starti ng 07/28/2024 until 07/28/2024 Payers Date Payer Category Payer Medicaid [id number] 1975 Unknown [id number] [id number] 1975 Unknown [id number] 1974 Unknown [id number] 2.16.8 [id number] 1974 Unknown [id number] 2.16.8 [id number] 1974 Unknown [id number] 2.16.8 [id number] 1959 Unknown [id number] Self-pay Self Pay [id number] Social History Date Type Detail Facility Tobacco smoking stat [facility] Unknown if ever smoked [facility] Work Phone: Start: 1975 Sex Assigned At Male [facility] Start: 07-28-2024 Tobacco smoking stat [facility] Ex-smoker [facility] End: 09-28-1993 History of tobacco use Current smoker [facility] End: 09-28-1993 History of tobacco use Cigarette Smoker [facility] Start: 07-28-2024 Alcoholic beverage intake Ex-drinker (finding) [facility] Start: 07-28-2024 History of Social function [facility] Start: 07-28-2024 Tobacco use panel [facility] [employer] Start: 1975 Sex assigned at Not on file B on [facility] History of Present illness Narrative 08-11-2024 Carina Rosales - 08/11/2024 10:30 AM EST Note Date & Type Note Facility 08-11-2024 History of Presen t illness Narrative Explained policies and procedure of an echocardiogram/Doppler study. documented in this encounter [facility] Evaluation note Note Date & Type Note Facility Evaluation note No assessment information [facility] Work Phone: Evaluation note Note Date & Type Note Facility Evaluation note Diagnosis Preop cardiovascular exam Pre-operative cardiovascular examination Primary hypertension Unspecified essential hypertension documented in this encounter [facility] [employer] [facility] Evaluation note Note Date & Type Note Facility Evaluation note Diagnosis Preop cardiovascular exam Pre-operative cardiovascular examination Primary hypertension Unspecified essential hypertension documented in this encounter [facility] Summary Purpose Family History No Family History Records FoundNo Family History Records FoundNo Family History Records FoundNo Family History Records Found Advance Directives No Advanced Directives Records Found Advance Directive Response Recorded Date/ Time Advance [...] OR WO FOL WCON,DOPPLER Nini Roy MD [address] [place] [address] [place] [address] Referral ID Status Reason Start Date Expiration Date V isits Requested Visits Authorized [id number] Pending Review 08/10/2024 07/28/2025 1 1 Additional Source Comments (unrecognized sect ion and content) No Status Records FoundNo Status Records FoundNo Status Records FoundNo Status Records Found INFORMATION SOURCE (unrecogn ized section and content) DATE CREATED AUTHOR 07/23/2021 [facility] DATE CREATED AUTHOR AUTHOR'S ORGANIZ ATION 06/08/2024 [facility] DATE CREATED AUTHOR AUTHOR'S ORGANIZ ATION 06/29/2024 [facility] DATE CREATED AUTHOR AUTHOR'S ORGANIZ ATION 08/16/2024 [facility] Care Teams (unrecognized sec tion and content) Team Status: Active Member Role Status Dates PHYSICIAN NO FAMILY Primary Care Provider Active Team Status: Inactive Member Role Status Dates PHYSICIAN NO FAMILY Primary Care Provider Active Start: April 05, 2024 End: April 05, 2024 Audra Gilbert APRN Attending Provider Active Start: April 05, 2024 End: April 05, 2024 Meal Temperer Relationship Specialty Start Date End Date Joseph Melendez APRN - CNP [address] [place] [id number] PCP - General Pediatric Rehabilitation 07/28/24 Meal Temperer Relationship Specialty Start Date End Date Joseph Melendez APRN - CNP PCP - General Pediatric Rehabilitation 07/28/24 Goals (unrecognized section and content) Goals may be documented in a n alternate section Reason for Visit (unrecogniz ed section and content) Specialty Diagnoses / Procedures Referred By Contac t Referred To Contact Diagnoses Preop cardiovascular exam Primary hypertension Procedures Echo (TTE) complete (PRN contrast/bubble/strain/3D) MN ECHO TTHRC R-T 2D W/WOM-MODE COMPL SPEC&COLR D MN TTE W OR WO FOL WCIRMA,Nini Galeana MD [address] [place] [address] [place] [address] Referral ID Status Reason Start Date Expiration Date V isits Requested Visits Authorized [id number] Pending Review 08/10/2024 07/28/2025 1 1 FOR [...] BE BASED ON THE PRIMARY CLINICAL RECORDS. [facility] [employer] [facility]. provides no warranty or guarantee of the accuracy or completeness of information in this document.
[2024-09-01 10:47] LABS: Basophils Absolute Auto 0.1 10^3/uL (0.0-0.1); Basophils Percent Auto 1.1 % (0.2-2.0); Eosinophils Absolute Auto 0.1 10^3/uL (0.0-0.7); Eosinophils Percent Auto 2.2 % (0.9-7.0); Hematocrit 45.9 % (42.0-54.0); Hemoglobin 15.9 g/dL (14.0-18.0); Immature Granulocytes Abs Auto 0.11 10^3/uL (0.00-0.03); Lymphocytes Absolute Auto 1.4 10^3/uL (1.2-3.8); Lymphocytes Percent Auto 25.8 % (20.5-60.0); Mean Corpuscular HGB Conc 34.6 g/dL (29.9-35.2); Mean Corpuscular Volume 86.6 fL (80.0-94.0); Monocytes Absolute Auto 0.6 10^3/uL (0.3-0.8); Monocytes Percent Auto 10.8 % (1.7-12.0); Neutrophils Absolute Auto 3.3 10^3/uL (1.4-6.5); Neutrophils Percent Auto 58.1 % (43.0-75.0); Platelet Count 79 10^3/uL (150-450); Red Cell Distribution Width 13.1 % (11.0-15.0); White Blood Count 5.6 10^3/uL (4.0-11.0)
[2024-09-01 11:18] LABS: Alanine Aminotransferase 77 U/L (16-63); Albumin Globulin Ratio 0.9; Albumin Level 3.4 g/dL (3.4-5.0); Alkaline Phosphatase 117 U/L (46-116); Anion Gap 13.3; Aspartate Amino Transferase 47 U/L (15-37); BUN Creatinine Ratio 13.8; Bilirubin Direct 0.2 mg/dL (0.0-0.2); Bilirubin Total 1.1 mg/dL (0.2-1.0); Calcium 8.7 mg/dL (8.5-10.1); Carbon Dioxide 25.6 mmol/L (21.0-32.0); Chloride 108 mmol/L (98-107); Estimated GFR (African America >60 (>=60 mL/min/1.73m^2); Estimated GFR (Non-African Ame >60 (>=60 mL/min/1.73m^2); Globulin 3.6 g/dL; Glucose 114 mg/dL (74-106); Potassium 3.9 mmol/L (3.5-5.1); Sodium 143 mmol/L (136-145)
== END 2024-09-01 10:13 | disposition home or self-care (01) ==
PROVIDERS: Visit Provider Orthopaedic Surgery
DX: Z01.812 Encounter for preprocedural laboratory examination (principal); M25.311 Other instability, right shoulder
CPT/HCPCS: 80048; 80076; 85025

== ENCOUNTER 2024-09-02 20:40 | Emergency (ER) | payer OTHER, SELFPAY ==
[2024-09-02] VITALS (17 sets, daily range): BP systolic 143–186; BP diastolic 81–99; PULSE 75–110; O2SAT 94–98; BMI 35.0
--- NOTE | 2024-09-02 20:59 | XR_ITS ---
The [address] [address] Patient Name: HERNESTO SAAVEDRA MRN: [id number] date: 1975 Sex: M Assigned Patient Location: ER Current Patient Location: ED.MAIN Accession/Order Number: [id number] Exam Date: 09/02/2024 21:14 Report Date: 09/02/2024 22:25 At the request of: LEIGHTON ASHLEY Procedure: XR chest 1V EXAMINATION: XR chest 1V, , 09/02/2024 9:14 PM EST INDICATION: chest pain HISTORY: Ordering Provider Reason for Exam: chest pain Technologist Note: Additional: COMPARISON: None. TECHNIQUE: Chest x-ray: One view. FINDINGS: No pneumothorax, pleural effusion or focal airspace consolidation. Heart is normal in size. Bony thorax is unremarkable. XR/XR chest 1V IMPRESSION: No acute cardiopulmonary process. Electronically authenticated by: DANNIELLE HANDLEY Date: 09/02/2024 22:25
--- NOTE | 2024-09-02 20:59 | ECG_ITS ---
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
--- NOTE | 2024-09-02 20:59 | ED.CHESTPAI1 ---
HPI - Chest Pain General Chief Complaint: Chest Pain Stated Complaint: CHEST PRESSURE, SHOULDER PAIN Time Seen by Provider: 09/02/24 20:49 Source: patient Mode of arrival: walk-in Limitations: no limitations History of Present Illness HPI narrative: The patient is a 49-year-old male with a history of hypertension and high cholesterol who presents to the emergency department with chest pain. Chest pain began about 45 minutes prior to arrival. Patient states that the pain is moderate in sensation. It feels like a pressure. It is not associated with shortness of breath, nausea, or diaphoresis. He feels like the pain is radiating from his shoulder to his chest. The right shoulder has been dislocated 6 times. He is recently underwent evaluation by executor of estate and has had an echocardiogram and an EKG for cardiac clearance for a prospective surgery on his shoulder. The patient does take medications for his hypertension but does not take medications for his high cholesterol pending the surgical intervention. Patient cannot take aspirin since he was a child and he does not recall what the reaction is. Patient took no pain medication prior to arrival. Patient states that he was on [place] for pain management for the right shoulder and he states that he is currently out of the medication. He has not had any in about 3 to 4 days. Unknown what makes the pain worse. Nothing makes it better. When it started he was at rest. He has not had any recent exertional chest pain or shortness of breath. Related Data Home Medications ?Medication ?Instructions ?Recorded ?Confirmed losartan 50 mg tablet 50 mg PO DAILY 08/15/24 09/02/24 Allergies Allergy/AdvReac Type Severity Reaction Status Date / Time aspirin Allergy Unknown Rash Verified 09/02/24 20:47 Penicillins Allergy Unknown Rash Verified 09/02/24 20:47 Review of Systems ROS Narrative 10 Systems were reviewed, and unless noted in the HPI, all other systems are reviewed, unremarkable, or noncontributory. [facility] Medical History Abnormal EKG ?R94.31 - Abnormal electrocardiogram [ECG] [EKG] (ICD-10) Thrombocytopenia ?D69.6 - Thrombocytopenia, unspecified (ICD-10) Memory loss ?R41.3 - Other amnesia (ICD-10) Hypertension ?I10 - Essential (primary) hypertension (ICD-10) Hepatitis C ?B19.20 - Unspecified viral hepatitis C without hepatic coma (ICD-10) Heart murmur ?R01.1 - Cardiac murmur, unspecified (ICD-10) GERD (gastroesophageal reflux disease) ?K21.9 - Gastro-esophageal reflux disease without esophagitis (ICD-10) COVID-19 ?U07.1 - COVID-19 (ICD-10) Liver cirrhosis ?K74.60 - Unspecified cirrhosis of liver (ICD-10) Arthritis ?M19.90 - Unspecified osteoarthritis, unspecified site (ICD-10) Anemia ?D64.9 - Anemia, unspecified (ICD-10) Melena ?K92.1 - Melena (ICD-10) Esophageal varices ?I85.00 - Esophageal varices without bleeding (ICD-10) Arachnoid cyst ?G93.0 - Cerebral cysts (ICD-10) GI bleed ?K92.2 - Gastrointestinal hemorrhage, unspecified (ICD-10) Colitis ?K52.9 - Noninfective gastroenteritis and colitis, unspecified (ICD-10) Labral tear of shoulder ?S43.439A - Superior glenoid labrum lesion of unspecified shoulder, initial encounter (ICD-10) Intellectual disability ?F79 - Unspecified intellectual disabilities (ICD-10) Neck injury ?S19.9XXA - Unspecified injury of neck, initial encounter (ICD-10) Brain tumor ?D49.6 - Neoplasm of unspecified behavior of brain (ICD-10) History of blood transfusion ?Z92.89 - Personal history of other medical treatment (ICD-10) Seizures ?R56.9 - Unspecified convulsions (ICD-10) Shoulder dislocation ?S43.006A - Unspecified dislocation of unspecified shoulder joint, initial encounter (ICD-10) Shoulder instability ?M25.319 - Other instability, unspecified shoulder (ICD-10) Social History Within the past year, how often did you have a drink containing alcohol: never Score interpretation: A score less than 4 is consistent with normal alcohol consumption. Smoking status: Never smoker Highest level of school completed/degree received: high school graduate Little interest or pleasure in doing things: not at all Feeling down, depressed, or hopeless: not at all Exam Narrative Exam Narrative: Prior to examining the patient, I have washed with hospital approved and provided Antiseptic Hand Pulmonary Care Nurse and have also applied gloves.? Prior to touching the patient, I asked for consent to examine the patient.? General: Alert and oriented, well nourished, mild distress. Eye: PERRL, EOMI, normal conjunctiva. HENT: Normocephalic, normal hearing, moist oral mucosa, no scleral icterus, no sinus tenderness. Neck: Supple, non-tender, no carotid bruits, no JVD, no lymphadenopathy. Lungs: Clear to auscultation and percussion, non-labored respiration. Heart: Normal rate, regular rhythm, no murmur, gallop or edema. Abdomen: Soft, non-tender, non-distended, normal bowel sounds, no masses. Musculoskeletal: Normal range of motion and strength, no tenderness or swelling. Skin: Skin is warm, dry and pink, no rashes or lesions. Neurologic: Awake, alert, and oriented X3, CN II-XII intact. Psychiatric: Cooperative, appropriate mood and affect.? Following the conclusion of the examination, I have washed my hands thoroughly after removing examination gloves. Constitutional Vital Signs, click to edit/add: Last Vital Signs Pulse 78 09/02/24 22:40 Resp 14 09/02/24 22:40 BP 162/94 H 09/02/24 22:30 Pulse Ox 96 09/02/24 22:20 Course Course Hospital Course: Patient was seen and evaluated in the emergency department for his chest pain. The patient has a history of musculoskeletal pain from his right shoulder and he feels that that may be the problem. He also feels that some of the pain may be exacerbated by the fact that the patient is out of [place] for about 3 days. The patient indicates that he had an echocardiogram and EKG done by executor of estate and was told that everything was looking good. And this was recently as the patient is going to have an orthopedic procedure on his right shoulder for chronic dislocations. Reevaluation(s) Reevaluation #1: The patient is pain-free. He is nontoxic and in no acute distress. His orthopedic surgeon is available on Thursday. Time: 23:25 Vital Signs Vital signs: Vital Signs Pulse Rate 88 09/02/24 20:45 Respiratory Rate 8 L 09/02/24 20:45 Blood Pressure 186/99 H 09/02/24 20:45 Pulse Oximetry 98 09/02/24 20:45 Pulse Rate 78 09/02/24 22:40 Respiratory Rate 14 09/02/24 22:40 Blood Pressure 162/94 H 09/02/24 22:30 Pulse Oximetry 96 09/02/24 22:20 MDM - Chest Pain MDM Narrative Medical decision making narrative: In summary, the patient is a 49-year-old male presenting with chest pain. Chest pain radiates from his right shoulder. Patient has not had any recent exertional dyspnea or shortness of breath and recently was cleared by cardiology for an orthopedic procedure. He presents today for chest pain at rest. Additional historian: Differential Diagnosis Differential diagnosis: Likely fracture of rib, pneumothorax, stable angina, unstable angina pectoris, atypical chest pain, st elevation myocardial infarction, costochondritis, chest pain, biliary colic and other (Right shoulder musculoskeletal pain) Medical Records Data Attestation: I reviewed the patient's medical records. Lab Data Attestation: I reviewed the patient's lab results. Lab results narrative: No anemia or leukocytosis. Comp panel reveals no electrolyte, kidney, or liver dysfunction. Troponin x 2 was negative. Labs: Lab Results 09/02/24 09/02/24 Range/Units 20:55 22:49 WBC 6.1 (4.0-11.0) 10^3/uL RBC 5.43 (4.70-6.10) 10^6/uL Hgb 16.4 (14.0-18.0) g/dL Hct 46.7 (42.0-54.0) % MCV 86.0 (80.0-94.0) fL MCH 30.2 (25.9-34.0) pg MCHC 35.1 (29.9-35.2) g/dL RDW 13.2 (11.0-15.0) % Plt Count 90 L (150-450) 10^3/uL MPV 11.4 (9.5-13.5) fL Neut % (Auto) 56.8 (43.0-75.0) % Lymph % (Auto) 32.1 (20.5-60.0) % [place] % (Auto) 6.9 (1.7-12.0) % Eos % (Auto) 2.0 (0.9-7.0) % Baso % (Auto) 0.7 (0.2-2.0) % Neut # (Auto) 3.5 (1.4-6.5) 10^3/uL Lymph # (Auto) 2.0 (1.2-3.8) 10^3/uL [place] # (Auto) 0.4 (0.3-0.8) 10^3/uL Eos # (Auto) 0.1 (0.0-0.7) 10^3/uL Baso # (Auto) 0.0 (0.0-0.1) 10^3/uL Abs Immat Gran (auto) 0.09 H (0.00-0.03) 10^3/uL Imm/Tot Granulo (auto) 1.5 H (0.0-0.5) % Sodium 140 (136-145) mmol/L Potassium 4.2 (3.5-5.1) mmol/L Chloride 103 (98-107) mmol/L Carbon Dioxide 25.4 (21.0-32.0) mmol/L Anion Gap 15.8 BUN 11.0 (7.0-18.0) mg/dL Creatinine 1.05 (0.70-1.30) mg/dL Est GFR ( Amer) >60 (>=60 mL/min/1.73m^2) Est GFR (Non-Af Amer) >60 (>=60 mL/min/1.73m^2) BUN/Creatinine Ratio 10.5 Glucose 219 H (74-106) mg/dL Calcium 9.1 (8.5-10.1) mg/dL Total Bilirubin 0.8 (0.2-1.0) mg/dL AST 72 H (15-37) U/L ALT 88 H (16-63) U/L Alkaline Phosphatase 158 H (46-116) U/L Troponin I High Sens 10.0 13.0 (4.0-76.1) pg/mL Total Protein 7.8 (6.4-8.2) g/dL Albumin 3.7 (3.4-5.0) g/dL Globulin 4.1 g/dL Albumin/Globulin Ratio 0.9 Imaging Data Chest x-ray: Attestation: I have reviewed the pertinent imaging results. Radiologist's impression: ITS Impressions Chest X-Ray 09/02/24 20:59 IMPRESSION: No acute cardiopulmonary process. Electronically authenticated by: DANNIELLE HANDLEY Date: 09/02/2024 22:25 ECG Data Attestation: I personally reviewed and interpreted this ECG as follows: (Sinus rhythm with a rate of 86 bpm. The [place] interval, QRS duration, QTc within normal limits. There is poor R wave progression in the septal leads. T wave morphology in lead III is abnormal but there is no contiguous lead changes or reciprocal lead changes.) ECG interpretation date: 09/02/24 ECG interpretation time: 20:50 Ischemic changes: non-specific ST-T wave changes and poor r wave progression Heart Score History: Slightly/Non-Suspicious ECG: NS Repolarization Age: >45-<65 years Risk Factors: 1 or 2 Risk Factors Troponin: <Normal Limit Total Heart Score Recommendations & Risks:: 3 Discharge Plan Discharge Chief Complaint: Chest Pain Clinical Impression: Chest pain, Chronic pain in right shoulder, Medication refill Patient Disposition: Home, Self-Care Time of Disposition Decision: 23:29 Condition: Good Prescriptions / Home Meds: No Action losartan 50 mg tablet 50 mg PO DAILY Print Language: Ethiopian Instructions: Chest Pain (ED), Shoulder Pain (ED) Additional Instructions: Is followed up with her orthopedic surgeon on Thursday. Please return if your symptoms worsen or change in quality or characteristics for your chest pain. Referrals: Physician,Non-Staff, MD [Physician] - 1 week
--- NOTE | 2024-09-02 21:04 | PC.NURSE ---
patient reports chest pressure that began 30 min ago. patient believes it is caused by uncontrolled right shoulder pain. patient states he has dislocated it 8 times and that he ran out of his norco a minute ago. Patient clarified that it had been 2-3 days but states his memory is not great and can not remember the last time he took it. patient unable to get ahold of orthopedic that is going to be doing his surgery and was unable to get prescription from family doctor.
[2024-09-02] MEDS: HYDROCODONE/ACET 5-325 MG TABLET 2 TAB PO (21:15)
[2024-09-02 21:49] LABS: Basophils Percent Auto 0.7 % (0.2-2.0); Eosinophils Absolute Auto 0.1 10^3/uL (0.0-0.7); Hematocrit 46.7 % (42.0-54.0); Hemoglobin 16.4 g/dL (14.0-18.0); Immature Granulocytes Abs Auto 0.09 10^3/uL (0.00-0.03); Immature Granulocytes Pct Auto 1.5 % (0.0-0.5); Lymphocytes Percent Auto 32.1 % (20.5-60.0); Mean Corpuscular HGB Conc 35.1 g/dL (29.9-35.2); Mean Corpuscular Hemoglobin 30.2 pg (25.9-34.0); Mean Platelet Volume 11.4 fL (9.5-13.5); Monocytes Absolute Auto 0.4 10^3/uL (0.3-0.8); Monocytes Percent Auto 6.9 % (1.7-12.0); Neutrophils Absolute Auto 3.5 10^3/uL (1.4-6.5); Neutrophils Percent Auto 56.8 % (43.0-75.0); Platelet Count 90 10^3/uL (150-450); Red Blood Count 5.43 10^6/uL (4.70-6.10); Red Cell Distribution Width 13.2 % (11.0-15.0); White Blood Count 6.1 10^3/uL (4.0-11.0)
[2024-09-02 22:02] LABS: Alanine Aminotransferase 88 U/L (16-63); Albumin Globulin Ratio 0.9; Albumin Level 3.7 g/dL (3.4-5.0); Alkaline Phosphatase 158 U/L (46-116); Anion Gap 15.8; Aspartate Amino Transferase 72 U/L (15-37); BUN Creatinine Ratio 10.5; Bilirubin Total 0.8 mg/dL (0.2-1.0); Calcium 9.1 mg/dL (8.5-10.1); Carbon Dioxide 25.4 mmol/L (21.0-32.0); Chloride 103 mmol/L (98-107); Estimated GFR (African America >60 (>=60 mL/min/1.73m^2); Estimated GFR (Non-African Ame >60 (>=60 mL/min/1.73m^2); Globulin 4.1 g/dL; Glucose 219 mg/dL (74-106); Potassium 4.2 mmol/L (3.5-5.1); Sodium 140 mmol/L (136-145); Total Protein 7.8 g/dL (6.4-8.2)
== END 2024-09-02 23:50 | disposition home or self-care (01) ==
PROVIDERS: Emergency Provider Emergency Medicine; PCP Nurse Practitioner Family
DX: R07.9 Chest pain, unspecified (principal); M25.511 Pain in right shoulder; G89.29 Other chronic pain; Z76.0 Encounter for issue of repeat prescription
CPT/HCPCS: 36415; 71045; 80053; 84484; 85025; 93005; 99285

== ENCOUNTER 2024-09-12 11:40 | Day surgery (SDC) | payer OTHER, SELFPAY ==
[2024-09-01 10:36] VITALS: BP 158/90; PULSE 63; TEMP 36.4; O2SAT 99; BMI 35.1
[2024-09-12] VITALS (8 sets, daily range): BP systolic 116–163; BP diastolic 71–100; PULSE 82–941; TEMP 36.7–36.8; O2SAT 94–98; BMI 34.0
--- OUTSIDE RECORDS SUMMARY | 2024-09-12 11:49 | XMS_ITS | CCD ---
Author Organization [facility] CliniSyny Care Team Providers Care Banking Supervisor Name Role Phone MISC, DOCTOR Attending Unavailable MISC, DR GERBER Consulting Unavailable MISC, DR GERBER Admitting Unavailable SCHLACHTER, JOSEPH Attending Unavailable SCHLACHTER, JOSEPH Referring Unavailable SCHLACHTER, JOSEPH Primary Care Unavailable SCHLACHTER, JOSEPH Referring Unavailable SCHLACHTER, JOSEPH Primary Care Unavailable Schlachter TELESALES MANAGER - PARKING ASSISTANT, Joseph Primary Care Provi clifton Schlachter TELESALES MANAGER - PARKING ASSISTANT, Joseph Primary Care Provi clifton NINI ROY Referring Unavailable SCHLACHTER, JOSEPH Primary Care Unavailable TONYA ALI F Julio César Attending Unavailable AHLISS ALI F O Referring Unavailable SCHLACHTER, JOSEPH Primary Care Unavailable Allergies Allergy Classification Reported Allergen(s) Allergy Type Date of Onset Reaction(s) Facility Penicillins (antibiotic) (1 source) Penicillins Drug Allergy 4 [facility] Unclassified (1 source) asprin Allergy to substance 4 Unknown Reaction [facility] (3 sources) Aspirin; Translations: [ASPIRIN] Drug Allergy 5 [facility] Repository (3 sources) Penicillins; Translations: [PENICILLINS] Drug allergy (disorder) 5 [facility] Rep[facility] (2 sources) Aluminum aspirin Drug Allergy 9 [facility] (2 sources) Penicillins Propensity to adverse reactions to drug 9 [facility] Medications Current Medications Medication Drug Class(es) Dates [...] 08-11-2024 Aortic Sinus Valsalva 3.6 cm [facility] Aortic Sinus Valsalva Index 1.56 cm/m2 [facility] AV Cusp Mmode 2.4 cm [facility] AV Mean Gradient 4 mmHg [facility] AV Mean Velocity 0.9 m/s [facility] AV Peak Gradient 7 mmHg [facility] AV Peak Velocity 1.3 m/s [facility] AV Velocity Ratio 0.69 [facility] AV VTI 23.8 cm Bon [facility] [email or web address] Body surface area Derived from formula 2.38 m2 Bon [facility] [email or web address] E/E' Lateral 4.88 Bon [facility] [employer] EF BP 61 % 55 - 100 % [facility] [employer] Fractional Shortening 2D 36 % 28 - 44 % Bon [facility] [employer] Interpretation and review of laboratory results Abnormal Bon [facility] [email or web address] IVSd 1.1 cm Abnormal 0.6 - 1.0 cm Bon [facility] [email or web address] LA Area 2C 19.6 cm2 [facility] [place] Area 4C 17.2 cm2 Bon [facility] [employer] LA Major [place] 5.2 cm [facility] LA Minor [place] 5.8 cm [facility] LA Volume BP 51 mL 18 - 58 mL [facility] [email or web address] LA Volume Index BP 22 ml/m2 16 - 34 ml/m2 [facility] LA Volume Index MOD A2C 24 ml/m2 16 - 34 ml/m2 [facility] LA Volume Index MOD A4C 19 ml/m2 16 - 34 ml/m2 [facility] LA Volume MOD A2C 55 mL 18 - 58 mL [facility] LA Volume MOD A4C 44 mL 18 - 58 mL [facility] [employer] LV E' Lateral Velocity 16.4 cm/s [facility] LV EDV A2C 77 mL [facility] [email or web address] LV EDV A4C 102 mL [facility] LV EDV Index A2C 33 mL/m2 [facility] LV EDV Index A4C 44 mL/m2 [facility] LV Ejection Fraction A2C 66 % [facility] LV Ejection Fraction A4C 56 % [facility] LV ESV A2C 26 mL [facility] ESV A4C 45 mL [facility] LV ESV Index A2C 11 mL/m2 [facility] LV ESV Index A4C 19 mL/m2 [facility] LV Mass 2D 168.9 g 88 - 224 g [facility] LV Mass 2D Index 73.1 g/m2 49 - 115 g/m2 [facility] [email or web address] LV RWT Ratio 0.50 [facility] LVIDd 4.4 cm 4.2 - 5.9 cm [facility] LVIDd Index 1.90 cm/m2 [facility] LVIDs 2.8 cm [facility] LVIDs Index 1.21 cm/m2 [facility] LVOT Mean Gradient 2 mmHg [facility] LVOT Peak Gradient 3 mmHg [facility] LVOT Peak Velocity 0.9 m/s [facility] LVOT VTI 16.1 cm [facility] LVOT:AV VTI Index 0.68 [facility] [email or web address] LVPWd 1.1 cm Abnormal 0.6 - 1.0 cm [facility] MV A Velocity 0.57 m/s [facility] MV E Velocity 0.80 m/s [facility] MV E Wave Deceleration Time 197.0 ms [facility] MV E/A 1.40 [facility] PV Max Velocity 1.0 m/s [facility] [employer] PV Peak Gradient 4 mmHg [facility] [employer] Left Ventricle: Norm al left ventricular [...] Image quality: adequate. No contrast was given. [facility] CV CPACS [facility] Radiology Study observation (narrative) [facility] Hemoglobin A1Con 07-29-2024 Glucose [Mass/Vol] 126 mg/dL Normal [facility] Comment on above: Result Comment: The ADA and AACC recommend providing the estimated average glucose result to permit better patient understanding of their HBA1c result. Performed By: #### G LYHGB #### [facility] [address] [place], [place] [phone] Religion Teacher: Manuel Lopez MD HbA1c (Bld) [Mass fraction] 6.0 % Normal 4.0-6.0 [facility] Comment on above: Performed By: #### G LYHGB #### [facility] [address] [place] [address] [phone] Religion Teacher: Manuel Lopez MD Lipid Panelon 07-28-2024 Cholesterol [Mass/Vol] 172 mg/dL 0 - 199 mg/dL [facility] Comment on above: Cholesterol Guidelines: <200 Desirable 200-240 Borderline >240 Undesirable Cholesterol in HDL [Mass/Vol] 26 mg/dL Low 40 - PINF mg/dL [facility] Comment on above: HDL Guidelines: <40 Undesirable 40-59 Borderline >59 Desirable Cholesterol in LDL [Mass/Vol] 115 mg/dL High 0 - 100 mg/dL [facility] [email or web address] Comment on above: LDL Guidelines: <100 Desirable 100-129 Near to/above Desirable 130-159 Borderline >159 Undesirable Direct (measured) LDL and calculated LDL are not interchangeable tests. Cholesterol in VLDL [Mass/Vol] 31 mg/dL High 1 - 30 mg/dL [facility] Cholesterol.total/Ch olesterol in HDL [Mass ratio] 6.6 {ratio} [facility] Interpretation and review of laboratory results Abnormal [facility] Triglyceride [Mass/Vol] 153 mg/dL High NINF - 150 mg/dL [facility] Comment on above: Triglyceride Guidelines: <150 Desirable 150-199 Borderline 200-499 High >499 Very high Based on AHA Guidelines for fasting triglyceride, June 2012. [facility] Lipid Profileon 07-28-2024 Cholesterol [Mass/Vol] 172 mg/dL Normal 0-199 [facility] Comment on above: Result Comment: Cholesterol Guidelines: <200 Desirable 200-240 Borderline >240 Undesirable Performed By: #### L IPR #### [facility] [address] [place] [address] [phone] Religion Teacher: Manuel Lopez MD Cholesterol in HDL [Mass/Vol] 26 mg/dL Low >40 [facility] Comment on above: Result Comment: HDL Guidelines: <40 Undesirable 40-59 Borderline >59 Desirable Performed By: #### L IPR #### [facility] [address] [place] [address] [phone] Religion Teacher: Manuel Lopez MD Cholesterol in LDL [Mass/Vol] 115 mg/dL High 0-100 [facility] Comment on above: Result Comment: LDL Guidelines: <100 Desirable 100-129 Near to/above Desirable 130-159 Borderline >159 Undesirable Direct (measured) LDL and calculated LDL are not interchangeable tests. Performed By: #### L IPR #### [facility] [address] [place] [address] Religion Teacher: Manuel Lopez MD Cholesterol in VLDL [Mass/Vol] 31 mg/dL High 1-30 [facility] Comment on above: Performed By: #### L IPR #### [facility] [place], [place] [phone] Religion Teacher: Manuel Lopez MD Cholesterol.total/Ch olesterol in HDL [Mass ratio] 6.6 {ratio} Normal [facility] Comment on above: Performed By: #### L IPR #### [facility] [address] [place] [address] Religion Teacher: Manuel Lopez MD Triglyceride [Mass/Vol] 153 mg/dL High <150 [facility] Comment on above: Result Comment: Triglyceride Guidelines: <150 Desirable 150-199 Borderline 200-499 High >499 Very high Based on AHA Guidelines for fasting triglyceride, June 2012. Performed By: #### L IPR #### [facility] [address] [place] [address] Religion Teacher: Manuel Lopez MD TSH With Reflex Ft4on 2023 TSH Qn 2.84 m[IU]/L [facility] Bon [facility] TSH w/reflex to FT4on 2023 Thyroid Stim. Horm. 2.84 uIU/mL Normal 0.27-4.20 [facility] Comment on above: Performed By: #### T SHX #### [facility] [address] [place] [address] Religion Teacher: Mookie Peoples MD CBC AND AUTO DIFFon 06-27-20 24 ABSOLUTE BASOPHIL 0.1 X10E9/L Normal 0.0-0.2 [facility] Comment on above: Performed By: #### 2 857-1, CBCA, CMP, 67091-4 #### [facility] ([id number]) [address], [address] [place] [address] ABSOLUTE NEUTROPHIL 3.1 X10E9/L Normal 1.5-6.6 [place] Comment on above: Performed By: #### 2 857-1, CBCA, CMP, 51909-8 #### [facility] ([id number]) [address], [address] [place] [address] Basophils/100 WBC (Bld) 1.1 % Normal [facility] Comment on above: Performed By: #### 2 857-1, CBCA, CMP, 76152-5 #### [facility] ([id number]) [address] [address] [place] [address] Eosinophils (Bld) [#/Vol] 0.2 10*3/uL Normal 0.0-0.4 [facility] Comment on above: Performed By: #### 2 857-1, CBCA, CMP, 94140-9 #### [facility] ([id number]) [address], [facility] [address] [place] [address] Eosinophils/100 WBC (Bld) 3.4 % Normal [facility] Comment on above: Performed By: #### 2 857-1, CBCA, CMP, 98064-5 #### [facility] ([id number]) [address] [address] [place] [address] Erythrocyte distribution width (RBC) [Ratio] 14.4 % Normal 11.5-15.0 [facility] Comment on above: Performed By: #### 2 857-1, CBCA, CMP, 49462-4 #### [facility] ([id number]) [address], [facility] [address] [place] [address] Hematocrit (Bld) [Volume fraction] 48.3 % Normal 39-49 [facility] Comment on above: Performed By: #### 2 857-1, CBCA, CMP, 21341-2 #### [facility] ([id number]) [address], [facility] [address] [place] [address] Hemoglobin (Bld) [Mass/Vol] 16.5 g/dL Normal 13.0-17.0 [facility] Comment on above: Performed By: #### 2 857-1, CBCA, CMP, 68089-1 #### [facility] ([id number]) [address], [facility] [address] [place] [address] Lymphocytes (Bld) [#/Vol] 2.0 10*3/uL Normal 1.0-3.5 [facility] Comment on above: Performed By: #### 2 857-1, CBCA, CMP, 84166-4 #### [facility] ([id number]) [address], [address] [place] [address] Lymphocytes/100 WBC (Bld) 33.7 % Normal [facility] Comment on above: Performed By: #### 2 857-1, CBCA, CMP, 81318-5 #### [facility] ([id number]) [address], [address] [place] [address] MCH (RBC) [Entitic mass] 30.4 pg Normal 27-34 [facility] Comment on above: Performed By: #### 2 857-1, CBCA, CMP, 57239-3 #### [facility] ([id number]) [address], [address] [place] [address] MCHC (RBC) [Mass/Vol] 34.1 g/dL Normal 32-36 [facility] Comment on above: Performed By: #### 2 857-1, CBCA, CMP, 09456-5 #### [facility] ([id number]) [address], [address] [place] [address] MCV (RBC) [Entitic vol] 89 fL Normal 80-100 [facility] Comment on above: Performed By: #### 2 857-1, CBCA, CMP, 94650-2 #### [facility] ([id number]) [address], [address] [place] [address] Monocytes (Bld) [#/Vol] 0.5 10*3/uL Normal 0-0.9 [facility] Comment on above: Performed By: #### 2 857-1, CBCA, CMP, 38741-6 #### [facility] ([id number]) [address], [address] [place] [address] Monocytes/100 WBC (Bld) 8.7 % Normal [facility] Comment on above: Performed By: #### 2 857-1, CBCA, CMP, 71717-1 #### [facility] ([id number]) [address], [facility] [address] [place] [address] Neutrophils/100 WBC (Bld) 53.1 % Normal [facility] Comment on above: Performed By: #### 2 857-1, CBCA, CMP, 95387-6 #### [facility] ([id number]) [address], [facility] [address] [place] [address] Platelet mean volume (Bld) [Entitic vol] 9.5 fL Normal 7-12 [facility] Comment on above: Performed By: #### 2 857-1, CBCA, CMP, 51526-9 #### [facility] ([id number]) [address], [facility] [address] [place] [address] Platelets (Bld) [#/Vol] 76 10*3/uL Low 150-450 [facility] Comment on above: Performed By: #### 2 857-1, CBCA, CMP, 19550-0 #### [facility] ([id number]) [address], [facility] [address] [place] [address] RBC COUNT 5.42 X10E12/L Normal 4.10-5.70 [facility] Comment on above: Performed By: #### 2 857-1, CBCA, CMP, 18660-2 #### [facility] ([id number]) [address] [address] [place] [address] WBC (Bld) [#/Vol] 5.9 10*3/uL Normal 4.0-11.0 [facility] Comment on above: Performed By: #### 2 857-1, CBCA, CMP, 13265-4 #### [facility] ([id number]) [address], [address] [place] [address] COMPREHENSIVE METABOLIC PANE Dieter 06-27-2024 Albumin [Mass/Vol] 4.2 g/dL Normal 3.2-5.3 [facility] Comment on above: Performed By: #### 2 857-1, CBCA, CMP, 76665-2 #### [facility] ([id number]) [address], [address] [place] [address] ALP [Catalytic activity/Vol] 108 U/L Normal 39-130 [facility] Comment on above: Performed By: #### 2 857-1, CBCA, CMP, 44450-9 #### [facility] ([id number]) [address], [address] [place] [address] ALT [Catalytic activity/Vol] 55 U/L High 0-40 [facility] Comment on above: Performed By: #### 2 857-1, CBCA, CMP, 35409-3 #### [facility] ([id number]) [address], [address] [place] [address] Anion gap [Moles/Vol] 10 mmol/L Normal 5-15 [facility] Comment on above: Performed By: #### 2 857-1, CBCA, CMP, 85971-7 #### [facility] ([id number]) [address], [address] [place] [address] AST [Catalytic activity/Vol] 41 U/L Normal 0-41 [facility] Comment on above: Performed By: #### 2 857-1, CBCA, CMP, 72564-9 #### [facility] ([id number]) [address], [address] [place] [address] Bilirubin [Mass/Vol] 0.9 mg/dL Normal 0.3-1.2 [place] Comment on above: Performed By: #### 2 857-1, CBCA, CMP, 95872-8 #### [facility] ([id number]) [address], [address] [place] [address] Calcium [Mass/Vol] 9.4 mg/dL Normal 8.5-10.5 [facility] Comment on above: Performed By: #### 2 857-1, CBCA, CMP, 60141-1 #### [facility] ([id number]) [address], [facility] [address] [place] [address] Chloride [Moles/Vol] 101 mmol/L Normal 98-109 [place] Comment on above: Performed By: #### 2 857-1, CBCA, CMP, 27146-6 #### [facility] ([id number]) [address] [address] [place] [address] CO2 [Moles/Vol] 28 mmol/L Normal 22-32 [facility] Comment on above: Performed By: #### 2 857-1, CBCA, CMP, 69930-7 #### [facility] ([id number]) [address] [address] [place] [address] Creatinine [Mass/Vol] 0.84 mg/dL Normal 0.60-1.30 [facility] Comment on above: Result Comment: METH OD TRACEABLE TO IDMS STANDARD Performed By: #### 2 857-1, CBCA, CMP, 74132-9 #### [facility] ([id number]) [address] [address] [place] [address] eGFR (CKD-EPI) NON-RACE DEPENDENT >90 Normal >59 [facility] Comment on above: Result Comment: Reported eGFR is based on the CKD-EPI 2020 equation that does not use a race coefficient. Performed By: #### 2 857-1, CBCA, CMP, 77461-5 #### [facility] ([id number]) [address] [address] [place] [address] Glucose [Mass/Vol] 123 mg/dL High 65-99 [facility] Comment on above: Performed By: #### 2 857-1, CBCA, CMP, 68677-6 #### [facility] ([id number]) [address], [address] [place] [address] Potassium [Moles/Vol] 4.0 mmol/L Normal 3.5-5.0 [facility] Comment on above: Performed By: #### 2 857-1, CBCA, CMP, 76138-9 #### [facility] ([id number]) [address], [address] [place] [address] Protein [Mass/Vol] 7.5 g/dL Normal 6.0-8.0 [facility] Comment on above: Performed By: #### 2 857-1, CBCA, CMP, 76444-9 #### [facility] ([id number]) [address], [address] [place] [address] Sodium [Moles/Vol] 139 mmol/L Normal 134-146 [facility] Comment on above: Performed By: #### 2 857-1, CBCA, CMP, 90267-1 #### [facility] ([id number]) [address], [address] [place] [address] Urea nitrogen [Mass/Vol] 20 mg/dL Normal 5-23 [facility] Comment on above: Performed By: #### 2 857-1, CBCA, CMP, 21298-9 #### [facility] ([id number]) [address], [address] [place] [address] Lipid 1996 panelon 4 Cholesterol [Mass/Vol] 147 mg/dL Low 150-200 [facility] Comment on above: Performed By: #### 2 857-1, CBCA, CMP, 08857-9 #### [facility] ([id number]) [address], [address] [place] [address] Cholesterol in HDL [Mass/Vol] 22 mg/dL Low >39 [facility] Comment on above: Result Comment: HDL <40 mg/dL - High Risk HDL > or = 40mg/dL- Desirable HDL >60 mg/dL - Negative Risk Performed By: #### 2 857-1, CBCA, CMP, 55452-0 #### [facility] ([id number]) [address], [address] [place] [address] Cholesterol in LDL [Mass/Vol] 54 mg/dL Normal <130 [facility] Comment on above: Result Comment: LDL <100 mg/dL - Desirable LDL >160 mg/dL - High Risk Performed By: #### 2 857-1, CBCA, CMP, 17331-9 #### [facility] ([id number]) [address], [address] [place] [address] Cholesterol in VLDL [Mass/Vol] 71 mg/dL High 0-30 [facility] Comment on above: Performed By: #### 2 857-1, CBCA, CMP, 70331-9 #### [facility] ([id number]) [address], [address] [place] [address] CHOLESTEROL:HDL 6.7 High 1.0-5.0 [facility] Comment on above: Performed By: #### 2 857-1, CBCA, CMP, 25302-5 #### [facility] ([id number]) [address], [address] [place] [address] Triglyceride [Mass/Vol] 356 mg/dL High 27-150 [facility] Comment on above: Performed By: #### 2 857-1, CBCA, CMP, 77699-3 #### [facility] ([id number]) [address] [facility], [address] [place] [address] Prostate specific Ag [Mass/V ol]on 06-27-2024 PSA SCREEN 0.55 ng/mL Normal 0.00-4.00 [facility] Comment on above: Result Comment: The method used for this test is Rachel [place] DXI chemiluminescent immunoassay. Values obtained by different assay methods cannot be used interchangeably. Performed By: #### 2 857-1, CBCA, CMP, 53298-3 #### [facility] ([id number]) [address] [facility], [address] [place] [address] Covid-19 PCR (CVDTB)on 06-29 SARS-CoV-2 (COVID-19) RNA RONDA+probe Ql (Unsp spec) Not detected Normal NOT DETECTED [facility] Comment on above: Result Comment: This test is not yet approved or cleared by the [place] FDA. When there are no FDA-approved or cleared tests available, and other criteria are met, FDA can make tests available under an emergency access mechanism called an Emergency Use Authorization (EUA). The EUA for this test is supported by the [place] of Health and Human Service's (HHS's) declaration [...] By: #### C VDTBH #### [facility] [address] [address] [address] Wally Hernandez Vital Signs Date Time Vital Sign Value Performing Clinician Faci lity 08-11-2024 10:53-0500 Body height 180.3 cm Nini Roy MD [facility] 08-11-2024 10:53-0500 Body mass index (BMI) [Ratio] 34.74 kg/m2 Nini Roy MD Work Phone: [facility] 08-11-2024 10:53-0500 Body weight 112.95 kg Nini Roy MD Work Phone: [facility] 08-11-2024 10:53-0500 Diastolic blood pressure 91 mm[Hg] Nini Roy MD Work Phone: [facility] 08-11-2024 10:53-0500 Systolic blood pressure 155 mm[Hg] Nini Roy MD Work Phone: [facility] 04-05-2024 12:53-0400 Body height 180.34 cm [facility] 04-05-2024 12:53-0400 Body mass index (BMI) [Ratio] 33.7 kg/m2 [facility] 04-05-2024 12:53-0400 Body temperature 98.1 [degF] [facility] 04-05-2024 12:53-0400 Body weight 109.82 kg [facility] 04-05-2024 12:53-0400 Diastolic blood pressure 70 mm[Hg] [facility] 04-05-2024 12:53-0400 Heart rate 65 /min [facility] 04-05-2024 12:53-0400 Respiratory rate 18 /min [facility] 04-05-2024 12:53-0400 SaO2% (BldA) [Mass fraction] 96 % [facility] 04-05-2024 12:53-0400 Systolic blood pressure 112 mm[Hg] [facility] Encounters Encounter Date Encounter Type Care Provider Facility Start: 08-11-2024 End: 08-13-2024 ambulatory NINI ROY [facility] Start: 08-11-2024 End: 08-13-2024 Patient encounter status Nini Roy MD Work Phone: [facility] Work Phone: Start: 08-11-2024 End: 08-13-2024 Subsequent hospital visit by physician Nini Roy MD Work Phone: [facility]In[facility] Comment on above: Preop cardiovascular exam; Primary hypertension Start: 07-28-2024 End: 07-28-2024 ambulatory NINI [facility] Start: 07-28-2024 Encounter for preprocedural cardiovascular examination [facility] Start: 07-28-2024 End: 07-28-2024 [facility] - PARKING ASSISTANT Work Phone: [facility] Start: 07-28-2024 End: 07-28-2024 Subsequent hospital visit by physician Joseph Melendez APRN - VIDA Work Phone: [facility] Comment on above: Preop cardiovascular exam; Primary hypertension Start: 06-27-2024 End: 06-27-2024 ambulatory [facility] Start: 06-27-2024 Encounter for genera l adult medical examination without abnormal findings [facility] Start: 06-07-2024 End: 06-07-2024 ambulatory [facility] Start: 06-07-2024 Encounter for genera l adult medical examination without abnormal findings [facility] Start: 04-05-2024 End: 04-05-2024 ambulatory [facility] Work Phone: Start: 04-05-2024 End: 04-05-2024 Patient encounter procedure [facility]ly [facility] Work Phone: Start: 07-17-2021 [...] Detail Author Start: 07-28-2029 Lipid panel Lipids [facility] Start: 07-28-2025 Hemoglobin A1c measurement A1C test (Diabetic or Prediabetic) [facility] Start: 08-29-2024 End: 08-29-2024 Patient encounter procedure 08/29/2024 9:00 AM EST Office Visit [facility] [address] [phone] Nini Roy MD [address] [place] [address] [facility] [place] [address] 3-4 week [facility] Comment on above: 3-4 week Start: 08-11-2024 End: 08-11-2024 Patient encounter procedure 08/11/2024 10:30 AM EST Appointment [facility] Non-Invasive Cardiology [address] [place] [id number] Nini Roy MD [address] [place] [address] [facility] [place] [id number] EPIC TEDDY W/ [facility]-Invasive Cardiology Comment on above: EPIC TEDDY W/ [facility] Start: 05-29-2024 COVID-19 Vaccine ( season) COVID-19 Vaccine ( season) [facility] Start: 04-28-2024 Influenza vaccination Flu vaccine (# 1) [facility] Start: 2019 Screening for malign ant neoplasm of colon [facility] Start: 2009 Diabetes screen Diabetes screen [facility] Start: 1993 DTaP/Tdap/Td vaccine (1 - Tdap) DTaP/Tdap/Td vaccine (1 - Tdap) [facility] Start: 1993 Hepatitis B vaccine (1 of 3 - 19+ 3-dose series) Hepatitis B vaccine (1 of 3 - 19+ 3-dose series) [facility] Start: 1992 Hepatitis C screening Hepatitis C sc reen [facility] [employer] Start: 1989 HIV screening HIV screen [facility] [employer] Start: 1986 Depression Screen Depression Screen [facility] End: 07-28-2024 Hemoglobin A1c/Hemoglobin.total in Blood [facility] [employer] Comment on above: 1 Occurrences starti ng 07/28/2024 until 07/28/2024 Payers Date Payer Category Payer Medicaid [id number] 1975 Unknown [id number] 1974 Unknown [id number] 1974 Unknown [id number] [id number] 1974 Unknown [id number] 1974 Unknown [id number] 1959 Unknown [id number] Self-pay Self Pay [id number] Social History Date Type Detail Facility Tobacco smoking stat [facility] Unknown if ever smoked [facility] Work Phone: Start: 1975 Sex Assigned At Male F [facility] Start: 07-28-2024 Tobacco smoking stat [facility] Ex-smoker [facility] End: 09-28-1993 History of tobacco use Current smoker [facility] End: 09-28-1993 History of tobacco use Cigarette Smoker [facility] Start: 07-28-2024 Alcoholic beverage intake [facility] (finding[facility] Start: 07-28-2024 History of Social function [facility] Start: 07-28-2024 Tobacco use panel [facility] [email or web address] Start: 1975 Sex assigned at Not on file B on [facility] History of Present illness Narrative 08-11-2024 Carina Rosales - 08/11/2024 10:30 AM EST Note Date & Type Note Facility 08-11-2024 History of Presen t illness Narrative Explained policies and procedure of an echocardiogram/Doppler study. documented in this encounter [facility] Evaluation note Note Date & Type Note Facility Evaluation note No assessment information [facility] Work Phone: Evaluation note Note Date & Type Note Facility Evaluation note Diagnosis Preop cardiovascular exam Pre-operative cardiovascular examination Primary hypertension Unspecified essential hypertension documented in this encounter [facility] [employer] [facility] Evaluation note Note Date & Type Note Facility Evaluation note Diagnosis Preop cardiovascular exam Pre-operative cardiovascular examination Primary hypertension Unspecified essential hypertension documented [facility] this encounter [facility] Summary Purpose Family History No Family History [...] hypertension Procedures Echo (TTE) complete (PRN contrast/bubble/strain/3D) CO ECHO TTHRC R-T 2D W/WOM-MODE COMPL SPEC&COLR D CO TTE W OR WO FOL WCON,DOPPLER Nini Roy MD [address] [place] [address] [place] [address] Referral ID Status Reason Start Date Expiration Date V isits Requested Visits Authorized [id number] Pending Review 08/10/2024 07/28/2025 1 1 Additional Source Comments (unrecognized sect ion and content) No Status Records FoundNo Status Records FoundNo Status Records FoundNo Status Records Found INFORMATION SOURCE (unrecogn ized section and content) DATE CREATED AUTHOR 07/23/2021 [facility] DATE CREATED AUTHOR AUTHOR'S ORGANIZ ATION 06/08/2024 [facility] DATE CREATED AUTHOR AUTHOR'S ORGANIZ ATION 06/29/[address] [facility] DATE CREATED AUTHOR AUTHOR'S ORGANIZ ATION 08/16/2024 [facility] Care Teams (unrecognized sec tion and content) Team Status: Active Member Role Status Dates PHYSICIAN NO FAMILY Primary Care Provider Active Team Status: Inactive Member Role Status Dates PHYSICIAN NO FAMILY Primary Care Provider Active Start: April 05, 2024 End: April 05, 2024 Audra Gilbert APRN Attending Provider Active Start: April 05, 2024 End: April 05, 2024 Banking Supervisor Relationship Specialty Start Date End Date Joseph Melendez APRN - CNP [address] [place] [id number] PCP - General Pediatric Rehabilitation 07/28/24 Banking Supervisor Relationship Specialty Start Date End Date Joseph Melendez APRN - CNP PCP - General Pediatric Rehabilitation 07/28/24 Goals (unrecognized section and content) Goals may be documented in a n alternate section Reason for Visit (unrecogniz ed section and content) Specialty Diagnoses / Procedures Referred By Contac t Referred To Contact Diagnoses Preop cardiovascular exam Primary hypertension Procedures Echo (TTE) complete (PRN contrast/bubble/strain/3D) CO ECHO TTHRC R-T 2D W/WOM-MODE COMPL SPEC&COLR D CO TTE W OR WO FOL WCIRMA,Nini Galeana MD [address] [place] [address] [place] [address] Referral ID Status Reason Start Date Expiration Date V isits Requested Visits Authorized [id number] Pending Review 08/10/2024 07/28/2025 1 1 FOR [...] BE BASED ON THE PRIMARY CLINICAL RECORDS. [facility] [employer] [facility]. provides no warranty or guarantee of the accuracy or completeness of information in this document.
[2024-09-12 12:13] LABS: Basophils Percent Auto 0.5 % (0.2-2.0); Eosinophils Absolute Auto 0.1 10^3/uL (0.0-0.7); Eosinophils Percent Auto 1.1 % (0.9-7.0); Hematocrit 50.5 % (42.0-54.0); Hemoglobin 17.5 g/dL (14.0-18.0); Immature Granulocytes Abs Auto 0.03 10^3/uL (0.00-0.03); Immature Granulocytes Pct Auto 0.4 % (0.0-0.5); Lymphocytes Percent Auto 24.9 % (20.5-60.0); Mean Corpuscular HGB Conc 34.7 g/dL (29.9-35.2); Mean Corpuscular Hemoglobin 30.3 pg (25.9-34.0); Mean Corpuscular Volume 87.5 fL (80.0-94.0); Mean Platelet Volume 11.2 fL (9.5-13.5); Monocytes Absolute Auto 0.5 10^3/uL (0.3-0.8); Monocytes Percent Auto 6.7 % (1.7-12.0); Neutrophils Absolute Auto 5.3 10^3/uL (1.4-6.5); Neutrophils Percent Auto 66.4 % (43.0-75.0); Platelet Count 86 10^3/uL (150-450); Red Blood Count 5.77 10^6/uL (4.70-6.10); Red Cell Distribution Width 13.2 % (11.0-15.0)
[2024-09-12] MEDS: LACTATED RINGER'S SOLUTION 1,000 ML 50 ML IV ×2 (12:32→15:28)
[2024-09-12] MEDS: CEFAZOLIN SODIUM 2 GM/50 ML D5W PREMIX IV (14:13)
--- NOTE | 2024-09-12 14:22 | PC.NURSE ---
1403 TIME OUT PERFORMED AND 2 MG VERSED INJECTED INTO IV RIGHT AFTER TIMEOUT 1405 AREA CLEANSED AT THE INTERSCALENE SITE AND INJECTION BEGAN 1410 PICTURE TAKEN AND PROCEDURE COMPLETED.
[2024-09-12] MEDS: EPINEPHRINE HCL PF 1 MG/ML AMPULE 4 MG IO (15:27)
--- NOTE | 2024-09-12 16:35 | P.ORPRC_ITS ---
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 Right shoulder arthroscopic anterior labral repair 2. Right shoulder arthroscopic remplissage Detailed description of procedure: After informed consent was obtained the patient brought to the operating room where general anesthetic was administered. Preoperatively regional block was placed. Patient was placed in the beachchair position. Exam under anesthesia of the right shoulder revealed a grossly dislocatable shoulder anteriorly. No posterior instability. Right shoulder and arm were prepped and draped in the usual sterile fashion. Diagnostic arthroscopy was performed the standard anterior and posterior arthroscopy portals. Findings included an intact superior labrum and biceps tendon. Anterior labrum was detached from the 1:30 position to the 5:30 position and scarred more medially. Subscapularis tendon was intact. Infraspinatus was intact. Large Hill-Sachs lesion which with extremes of external rotation did not engage but this was only by millimeter to so the decision was made to proceed with a remplissage procedure as well. Articular ca rtilage of the glenoid had diffuse grade II chondromalacia without unstable articular cartilage flaps. Posterior labrum was intact. The anterior labrum was mobilized with a elevator. A rasp and shaver were used debride the neck of the glenoid to a bleeding bed of bone. 90 degree suture lasso was used to pass 4 Arthrex labral tapes through the torn anterior labrum incorporating capsule as well. Each of these was then repaired to the neck of the glenoid with an Arthrex 2.9 short bio composite push lock. Nice shift was was obtained of the capsule and repair of the labrum and with this clear religious of stability to the anterior shoulder. Next the scope was introduced the 7 degree scope and switched to the anterior viewing portal. Through the posterior cannula a Arthrex 4.75 FT suture anchor was placed. A 18-gauge spinal needle using the nitinol wire was used to pass 1 limb of each suture infraspinatus tendon. Then introduced in the subacromial space through a posterior lateral portal and an bursectomy was performed. Sutures were then passed through the cannula and tied in a simple fashion leaving the remplissage procedure. Shoulder was drained of arthroscopy fluid. Portals were closed with a nylon suture. Sterile dressing was placed. UltraSling was placed. Patient was awakened and brought to the recovery room in stable condition. There were no intraoperative or immediate postoperative complications. Anesthesia: regional and General-LMA Surgeon: Vern Carias Estimated blood loss (mL): 5 Pathology: none sent Condition: stable Disposition: PACU
--- NOTE | 2024-09-12 17:42 | PC.NURSE ---
UP TO BATHROOM AND VOIDS WITHOUT DIFFICULTY
== END 2024-09-12 17:43 | disposition home or self-care (01) ==
PROVIDERS: Anesthesiology; Visit Provider Orthopaedic Surgery
PROC: (CPT 1630; principal; 2024-09-12 13:00)
DX: M25.311 Other instability, right shoulder (principal); S43.431A Superior glenoid labrum lesion of right shoulder, initial encounter; I10 Essential (primary) hypertension; K21.9 Gastro-esophageal reflux disease without esophagitis; K75.9 Inflammatory liver disease, unspecified; X50.9XXA Other and unspecified overexertion or strenuous movements or postures, initial encounter
CPT/HCPCS: 29806; 36415; 64415; 85025; C1713; J0690; J1885; J2250; J2371; J2405; J2704; J2710; J2795; J3010